=== PATIENT | female | born 1970 | race Caucasian/White ===

== ENCOUNTER 2021-09-23 11:31 | Outpatient (CLI) | payer OTHER, SELFPAY ==
--- NOTE | ~2021-09-23 | XR_ITS ---
EXAMINATION: XR shoulder RT min 2V INDICATION: Right shoulder pain TECHNIQUE: Four views of the right shoulder are submitted. COMPARISON: None FINDINGS: Normal alignment. No fracture. There is moderate osteoarthritis of the acromioclavicular brandi int and mild osteoarthritis of the glenohumeral joint. Soft tissues are unremarkable. IMPRESSION: 1. Osteoarthritis without acute osseous abnormality. Reviewed, dictated and finalized at location A. 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
== END 2021-09-23 11:32 | disposition home or self-care (01) ==
LOC: ANHIMG 11:36
PROVIDERS: PCP Emergency Medicine; Visit Provider Emergency Medicine
DX: M19.011 Primary osteoarthritis, right shoulder (principal)
CPT/HCPCS: 73030

== ENCOUNTER 2021-10-26 14:35 | Outpatient (CLI) | payer OTHER, SELFPAY ==
--- NOTE | ~2021-10-26 | MM_ITS ---
EXAMINATION: MM screening lawanda BI w coy HISTORY: Screening mammogram TECHNIQUE: Craniocaudal and mediolateral oblique 3-D tomosynthesis images were obtained and synthetic 2-D images were generated. CAD analysis was submitted and interpreted. COMPARISON: No prior mammogram is available for comparison at this institution. BREAST PARENCHYMAL COMPOSITION: The breasts are almost entirely fatty. FINDINGS: There is no suspicious mass, calcification, or architectural distortion to suggest malignan cy in either breast. IMPRESSION: 1. No mammographic evidence of malignancy. 2. Recommend routine screening mammography in one year. BI-RADS Category 1: Negative Reviewed, dictated and finalized at location A.
== END 2021-10-26 14:36 | disposition home or self-care (01) ==
LOC: ANHIMG 14:37
PROVIDERS: PCP Emergency Medicine; Visit Provider Family Medicine
DX: Z12.31 Encounter for screening mammogram for malignant neoplasm of breast (principal)
CPT/HCPCS: 77063; 77067

== ENCOUNTER 2021-11-06 16:02 | Outpatient (CLI) | payer OTHER, SELFPAY ==
--- NOTE | ~2021-11-06 | CT_ITS ---
EXAMINATION: CT shoulder RT wo con DATE: 11/06/2021 16:27 INDICATION: Right shoulder pain TECHNIQUE: High resolution computed tomography (CT) of the right shoulder was performed without intra venous contrast. Additional sagittal and coronal reconstructions were performed. Automated exposure c ontrol and iterative reconstruction technique were employed. The dose-length product was 653.83 mGy-c m. COMPARISON: Right shoulder radiographs dated 09/23/2021 FINDINGS: Bone alignment is normal. No fracture. The acromion undersurface is curved in morphology (type II) wi th small subacromial spurs. Moderate acromioclavicular and mild glenohumeral osteoarthritis. Multipl e small lucencies with sclerotic margins along the superior facet of the greater tuberosity as well a s the lesser tuberosity which could be degenerative cystic change related to chronic rotator cuff dis ease or potentially suture anchors related to prior rotator cuff repair. Correlate with clinical hist ory. There also suggestion of a possible suture anchor tract at the cephalad aspect of the intertuber cular groove which could be seen with bicipital tenodesis. No asymmetric atrophy of the musculature o f the right shoulder girdle. Calcified right lower lobe nodule and calcified right hilar lymph nodes consistent with old granulomatous disease. No pathologically enlarged right axillary lymphadenopathy. IMPRESSION: 1. Moderate right acromioclavicular and mild glenohumeral osteoarthritis. 2. Multiple lucencies at the lesser greater tuberosities and at the floor of the intertubercular groo ve which could be degenerative related to chronic rotator cuff disease but with configuration also montes ggests possibility of prior rotator cuff repair and/or bicipital tenodesis. Correlate with clinical/s urgical history. Reviewed, dictated and finalized at location B. IMPRESSION: 1. Moderate right acromioclavicular and mild glenohumeral osteoarthritis. 2. Multiple lucencies at the lesser greater tuberosities and at the floor of th e intertubercular groove which could be degenerative related to chronic rotator cuff disease but with configuration also suggests possibility of prior rotator cuff repair and/or bicipital tenodesis. Correlate with clinical/surgical histo ry.
== END 2021-11-06 16:03 | disposition home or self-care (01) ==
PROVIDERS: PCP Emergency Medicine; Visit Provider Nurse Practitioner Adult Health
DX: M25.511 Pain in right shoulder (principal); M19.011 Primary osteoarthritis, right shoulder
CPT/HCPCS: 73200

== ENCOUNTER 2021-12-18 12:30 | Outpatient (RCR) | payer OTHER, SELFPAY ==
[2021-11-30 08:14] VITALS: BP_SYST 132
--- NOTE | 2021-11-30 09:12 | PTOPEVAL ---
PHYSICAL THERAPY INITIAL EVALUATION. Thank you for referring Gretchen Harris to [facility].? The patient is scheduled to be seen for therapy? 2x/week for 4 weeks. Please review, sign, date and return this plan of care LANDON. I agree with and certify that the following plan of care is medically necessary. Referring Physician Date Attending Provider: Sidney Bynum MD *PT Outpatient Evaluation Start: 11/30/21 Evaluation Information Diagnosis R shoulder pain Onset 2+ years Subjective Information Pt states she is having Query Text:As Reported By Patient/ shoulder pain that is not new. Family She states she is limited and unable to lift and carry a mug. Pt is very emotional this date. She states she is very depressed and has anxiety. Pt states she has taken pain medication given to her by her dentist. Shes states she has done therapy before but did not complete her visits. Pain Assessment Right Shoulder(s) Reported Pain Level 8 Pain Description Aching,Dull,Sharp,Throbbing Pain Frequency Chronic,Intermittent Lowest Pain Intensity 4 Greatest Pain Intensity 9 Pain Aggravating Factors Lifting Additional Pain Score Comments Pt states she takes Alive and Tylenol daily Interventions Used Interventions Used By Clinicians Education,Exercise,Rest Pain Relief Interventions Used By Ice,Medication Patient Other Alleviating Interventions pain patches Upper Extremity Range of Motion Gross Upper Extremity Range of Motion Increased upper trap Comments recruitment with any motion of the R upper extremity. Emotion with any active movement. Pt unwilling to attempt motions today stating its not worth the pain . Scapular/ Shoulder Range of Motion Right Shoulder Flexion - Active 80 Shoulder Flexion - Passive 150 Shoulder Abduction - Active 64 Shoulder Abduction - Passive 132 Shoulder Medial Rotation - Active PSIS Shoulder Lateral Rotation - Active T1 Scapular/Shoulder Range of Motion L shoulder flexion - 140 Comments L shoulder abduction - 142 L active ER- T4 L active IR- T6 Upper Extremity Muscle Strength Testing Gross Upper Extremity Strength Comments L UE grossly 4/5 R should
--- NOTE | 2021-12-16 13:07 | PCPTNOTE ---
Patient called to cancel stating she was unable to make due to not having a ride.
--- NOTE | 2021-12-23 11:21 | PCPTNOTE ---
Patient did not show up for scheduled appointment this date. Called and left voicemail.
--- NOTE | 2021-12-30 09:32 | PCPTNOTE ---
Attending Provider: Sidney Bynum MD Patient:Gretchen Harris Date of :1970 Patient called the office today to cancel all her remaining appointments. She states she has to move for an uncertain amount of time. She will be discharged from skilled physical therapy services and will need new orders if she wishes to return at a later time. Patient?s initial visit was on 11/30/2021 and she had a total of 5 visits. The goals have been partially met. Thank you for referring this patient to [facility]. Please review, sign, date and return this discharge summary LANDON. I have been updated about the patient's current status and I agree with discharge from the above service at this time. Referring Physician Date
== END 2022-01-19 14:42 | disposition home or self-care (01) ==
LOC: ANHHIPT 12:30
PROVIDERS: PCP Emergency Medicine; Visit Provider Family Medicine
DX: M25.511 Pain in right shoulder (principal)
CPT/HCPCS: 97110; 97112; 97140; 97161

== ENCOUNTER 2022-01-28 17:35 | Outpatient (CLI) | payer OTHER, SELFPAY ==
--- NOTE | ~2022-01-28 | MR_ITS ---
EXAMINATION: MR shoulder RT wo con DATE: 01/28/2022 18:07 INDICATION: Chronic shoulder pain, loss of range of motion. No injury. TECHNIQUE: Magnetic resonance imaging (MRI) of the right shoulder was performed without intravenous c ontrast. Sequences included axial PD-weighted FS FSE, coronal oblique PD-weighted FS FSE and T2-weigh gemma FS FSE, and sagittal oblique T2-weighted FS FSE and T1-weighted FSE. COMPARISON: None. FINDINGS: Coracoacromial arch: Mild lateral downsloping of the type II acromion. Marked AC joint hypertrophy with considerable infer ior osteophytosis. Acromial tip enthesopathy. No significant subcoracoid narrowing Rotator cuff: Focal 4 mm partial-thickness tear of the anterior fibers of the supraspinatus at the footplate. Mild bursal sided fraying and minimal partial-thickness tearing of the most anterior fibers of the infrasp inatus at their insertion. Edema and fluid signal at the musculotendinous junction of the infraspinat us. Teres minor and subscapularis are intact. Biceps tendon and glenoid labrum: Thickening and high signal in the long head of biceps tendon, without focal tear. Focal high signal i n the posterior superior labrum. Fluid: Small volume subacromial and subdeltoid fluid. No significant glenohumeral fluid. Greater than expect ed fluid distention of the long head of biceps tendon sheath. Bones/cartilage: Bone marrow signal is unremarkable. IMPRESSION: 1. Small, focal partial tears of the supraspinatus and infraspinous, with interstitial type tearing o f the infraspinatus. 2. Tear of the posterior superior glenoid labrum. 3. Biceps tendinopathy with tenosynovitis. 4. Osseous outlet compromise and mild subchondral subdeltoid bursitis. Reviewed, dictated and finalized at location K. IMPRESSION: 1. Small, focal partial tears of the supraspinatus and infraspinous, with inter stitial type tearing of the infraspinatus. 2. Tear of the posterior superior glenoid labrum. 3. Biceps tendinopathy with tenosynovitis. 4. Osseous outlet compromise and mild subchondral subdeltoid bursitis.
== END 2022-01-28 17:36 | disposition home or self-care (01) ==
PROVIDERS: PCP Emergency Medicine; Visit Provider Nurse Practitioner Adult Health
DX: M19.011 Primary osteoarthritis, right shoulder (principal); M75.21 Bicipital tendinitis, right shoulder; S43.431A Superior glenoid labrum lesion of right shoulder, initial encounter; X58.XXXA Exposure to other specified factors, initial encounter
CPT/HCPCS: 73221

== ENCOUNTER 2022-10-07 08:00 | Outpatient (RCR) | payer OTHER, SELFPAY ==
[2022-08-26 14:59] VITALS: BP_SYST 90
--- NOTE | 2022-08-26 16:21 | PTOPEVAL1 ---
Assessment and note entered by Ginny Jefferson, PT Evaluation Information Assessment Status Evaluation Diagnosis right rotator cuff incomplete tear Onset years ago Subjective Information Pt received a shot in her shoulder but was a long time ago approx 6 months ago. Can't raise arm above head, bear weight, take backwards States has been catching more and shooting pain into arm. Reported Pain Level Pain Score 7: Self Report Assessment PT Clinical Summary Pt presents w/ dx right RTC partial tear nontraumatic. Pt reports pain ranges from 2-10/10, is unable to use her arm and thus is restricted in ADLs and activities d/t pain. She demo's severely reduced AROM, strength testing not performed d/t pain. Pt educated on dx, therapy prognosis, and HEP. Will benefit from therapy to reduce pain, improve ROM and strength thus improving ADLs and function. Plan of Care Interventions Electrical Stimulation,Hot Pack/Cold Pack,Manual Therapy,Neuro Re-education,Patient/Caregiver Educati,Therapeutic Activities,Therapeutic Exercise,Ultrasound PT Services Indicated Yes Treatment Frequency and 2x weekly x 4 weeks Duration These treatments will address the objective and functional deficits as defined above. The patient will be advanced safely and appropriately in order for the patient to progress towards his/her prior level of function. Additional exercises will be introduced and as well as a comprehensive home exercise program upon discharge, if needed, ?to ensure carryover of functional gains achieved in the clinic. This treatment plan has been reviewed and agreement upon by the patient.
--- NOTE | 2022-09-17 11:57 | PCPTNOTE ---
Patient called & cancelled scheduled appointment this date due to illiness
--- NOTE | 2022-10-07 08:38 | PTOPDC ---
Assessment and note entered by Ginny Jefferson, PT Assessment Status Discharge Diagnosis right rotator cuff incomplete tear Onset years ago Subjective Information Reports last couple nights woke up with her arm catching and getting stuck. Reports last few days have been bad. Has been icing it and pain patch Reported Pain Level Pain Score 8: Self Report Assessment PT Clinical Summary Pt arrives late for therapy session. Reports has good days and bad days, verbalizes being very fearful of movin her arm dur to possiblility of catching causing pain. Today cont to demo severe guarding with active motion, reports anxiety and frustration with shoulder. Pt has not made observable progress nor has she reported significant progress in her pain. Thus she is being referred back to MD for further testing.
== END 2022-10-07 09:16 | disposition home or self-care (01) ==
LOC: ANHHIPT 08:00
PROVIDERS: PCP Emergency Medicine; Visit Provider Orthopaedic Surgery
DX: M75.111 Incomplete rotator cuff tear or rupture of right shoulder, not specified as traumatic (principal)
CPT/HCPCS: 97014; 97035; 97110; 97112; 97140; 97162; G0283

== ENCOUNTER 2024-04-20 08:20 | Outpatient (CLI) | payer OTHER, SELFPAY ==
--- NOTE | ~2024-04-20 | US_ITS ---
Limited Abdominal Sonogram: Real-time sonographic imaging of the right upper quadrant was performed. Clinical History: Abnormal LFTs Findings: The liver appears normal with no evidence of mass lesion or bile duct dilatation. Main por breanne vein demonstrates normal direction of flow. The gallbladder is absent, compatible prior cholecyst ectomy. The common bile duct measures 8 mm. The visualized pancreas, aorta, and IVC are unremarkable . Impression: Status post cholecystectomy, otherwise unremarkable exam. Reviewed, dictated and finalized at location . Impression: Status post cholecystectomy, otherwise unremarkable exam.
== END 2024-04-20 08:21 | disposition home or self-care (01) ==
LOC: ANHIMG 08:23
PROVIDERS: PCP Registered Nurse; Visit Provider Nurse Practitioner Family
DX: D50.9 Iron deficiency anemia, unspecified (principal); Z90.49 Acquired absence of other specified parts of digestive tract
CPT/HCPCS: 76705

== ENCOUNTER 2024-07-20 01:28 | Day surgery (SDC) | payer OTHER, SELFPAY ==
[2024-06-11 13:54] VITALS: BMI 32.8
[2024-07-09 14:36] VITALS: BMI 32.8
--- NOTE | 2024-07-19 13:00 | P.PNAN_ITS ---
Anes - Initial Pre Proc Eval Procedure: Operation Date: 07/20/24 10:00 Proposed Procedures p Esophagogastroduodenoscopy & Colonoscopy - Derek Cobb MD Date/Time: 07/19/24 13:00 Surgeon: Derek Cobb MD Pre Op Diagnosis: abnormal weight loss Patient Data Age: 54 Gender: F Height: 1.6 m Weight: 84 kg Allergies Allergy/AdvReac Type Severity Reaction Status Date / Time No Known Allergies Allergy Verified 07/09/24 14:28 Home Medications ?Medication ?Instructions ?Recorded ?Confirmed ?Type folic acid 1 mg tablet 1 mg PO DAILY 09/10/20 07/20/24 History levetiracetam 750 mg tablet 750 mg PO BID 09/10/20 07/20/24 History levothyroxine 75 mcg tablet 75 mcg PO DAILY 09/10/20 07/20/24 History quetiapine 100 mg tablet 100 mg PO DAILY 09/10/20 07/20/24 History sertraline 100 mg tablet 100 mg PO DAILY 09/10/20 07/20/24 History Patient hx anesthesia problems: none Family hx anesthesia problems: none Results Review: All pre-operative results and documents have been reviewed as part of the pre- operative evaluation. [facility] Past Medical History Medical History (Updated 07/19/24 @ 13:01 by Hugh Nelson DO) Hypothyroidism (acquired) Bipolar disorder, unspecified Seizure disorder since 2011 (?) alcohol related Asthma Anemia Surgical History Surgical History History of delivery 1998 H/O ventral hernia repair multiple times History of cholecystectomy 1989 H/O gastric bypass 2002 Family History Family History Mother Heart disease Chronic obstructive pulmonary disease, unspecified Diabetes mellitus Father , before 40 years Acute myocardial infarction Other Asthma Social History Social History Smoking status: Never smoker Alcohol intake: never Alcohol use details: drank a lot for a while Substance use: never Substance use type: does not use Last use: high school Living arrangements: with family Additional living arrangements comments: condo unit with 21 year old son Occupation/Education: unemployed Gender identity (if verbalized by the patient): Female Sexual Orientation (if Verbalized by the Patient): Straight or Heterosexual Spiritual care concerns: No Agree to blood products: Yes Anes - Eval Final PreProcedure Day of Procedure 07/19/24 13:00 Patient weight: obese Heart: regular rate and rhythm Lungs: clear to auscultation Airway: Mallampati scale class II Neurological: alert and oriented Last oral intake: >/= 8 hours ASA classification: III Emergent: no Anesthetic plan: proceed Anesthesia type and monitoring: general GIVS and standard monitoring Results Review: All pre-operative results and documents have been reviewed as part of the pre- operative evaluation. Informed Consent: The patient's anesthetic plan and its attendant risks and benefits were discussed with the patient/family/POA. Questions were solicited and answers provided to the satisfaction of the patient/family/POA.
[2024-07-20 09:14] VITALS: BP 138/87; PULSE 89; RESP 18; TEMP 36.6; O2SAT 96
[2024-07-20] MEDS: LACTATED RINGERS 1,000 ML 150 ML IV CONT (09:32)
--- NOTE | 2024-07-20 10:07 | P.HP_ITS ---
H&P: HPI History of Present Illness Date/Time: 07/20/24 10:07 Chief Complaint: Iron defiency anemia Narrative: This patient has been seen in our office 2 months ago. She has a history of gastric bypass several years ago and was found to have recurrent iron deficiency anemia despite iron infusions. At 1 point she described having had rectal bleeding. She is here for evaluation, EGD and colonoscopy. [facility] Past Medical History Medical History (Updated 07/20/24 @ 10:09 by Derek Cobb MD) Hypothyroidism (acquired) Bipolar disorder, unspecified Seizure disorder since 2011 (?) alcohol related Asthma Anemia Surgical History Surgical History History of delivery 1998 H/O ventral hernia repair multiple times History of cholecystectomy 1989 H/O gastric bypass 2002 Family History Family History Mother Heart disease Chronic obstructive pulmonary disease, unspecified Diabetes mellitus Father , before 40 years Acute myocardial infarction Other Asthma Social History Social History Smoking status: Never smoker Alcohol intake: never Alcohol use details: drank a lot for a while Substance use: never Substance use type: does not use Last use: high school Living arrangements: with family Additional living arrangements comments: condo unit with 21 year old son Occupation/Education: unemployed Gender identity (if verbalized by the patient): Female Sexual Orientation (if Verbalized by the Patient): Straight or Heterosexual Spiritual care concerns: No Agree to blood products: Yes Meds Home Medications and Allergies Home Medications ?Medication ?Instructions ?Recorded ?Confirmed ?Type folic acid 1 mg tablet 1 mg PO DAILY 09/10/20 07/20/24 History levetiracetam 750 mg tablet 750 mg PO BID 09/10/20 07/20/24 History levothyroxine 75 mcg tablet 75 mcg PO DAILY 09/10/20 07/20/24 History quetiapine 100 mg tablet 100 mg PO DAILY 09/10/20 07/20/24 History sertraline 100 mg tablet 100 mg PO DAILY 09/10/20 07/20/24 History Allergies Allergy/AdvReac Type Severity Reaction Status Date / Time No Known Allergies Allergy Verified 07/09/24 14:28 Vital Signs Vital Signs - 24 hr 07/20/24 09:14 Temperature 97.8 F Pulse Rate 89 Respiratory Rate 18 Blood Pressure 138/87 Pulse Oximetry 96 Oxygen Delivery Room Air Exam Const: General: cooperative and healthy appearing Resp: Effort & Inspection: normal respiratory effort and able to speak in complete sentences Auscultation: clear to auscultation bilaterally Cardio: Rate: regular rate Rhythm: regular rhythm GI: Inspection: normal to inspection GI Palp: No No hepatosplenomegaly present Auscultation: normal bowel sounds Rectal Exam: deferred Skin: General skin exam: normal color Psych: Appearance: grossly normal Mental Status: mental status grossly normal Assessment and Plan Assessment and plan (1) Iron deficiency anemia: Code(s): D50.9 - Iron deficiency anemia, unspecified Status: Acute Assessment and Plan: The patient has noted deficiency is multifactorial, taking into account gastric bypass by itself can be an explanation. However, will perform EGD to rule out anastomotic ulcers or erosive gastritis. Due to history of colonic polyps, a colonoscopy will also be performed. The patient is deemed a good candidate for the procedures. Consent signed. Will proceed.
--- NOTE | 2024-07-20 10:23 | SUR.OPER ---
EGD: start 1013, end 1017 Colonoscopy: start 1023, end 1037
[2024-07-20 10:39] VITALS: BP 104/64; PULSE 71; RESP 16; O2SAT 100
[2024-07-20 10:49] VITALS: BP 110/73; PULSE 75; RESP 21; O2SAT 99
[2024-07-20 10:59] VITALS: BP 112/66; PULSE 72; RESP 17; O2SAT 100
== END 2024-07-20 11:28 | disposition home or self-care (01) ==
PROVIDERS: PCP Registered Nurse; Referring Provider Nurse Practitioner Family; Visit Provider Internal Medicine Gastroenterology
PROC: 0DJ08ZZ Inspection of Upper Intestinal Tract, Via Natural or Artificial Opening Endoscopic (ICD-10-PCS; CPT 43235; principal; 2024-07-20 10:00)
DX: D50.9 Iron deficiency anemia, unspecified (principal); Z98.84 Bariatric surgery status; E66.9 Obesity, unspecified; Z68.32 Body mass index [BMI] 32.0-32.9, adult
CPT/HCPCS: 45378; 43239; 88305; J2704; J7120

== ENCOUNTER 2024-10-19 10:23 | Outpatient (CLI) | payer OTHER, SELFPAY ==
[2024-10-19 10:50] LABS: Basophils Absolute Auto 0.1 K/mm3 (0.0-0.1); Basophils Percent Auto 0.7 % (0.2-1.2); Eosinophils Absolute Auto 0.3 K/mm3 (0-0.3); Eosinophils Percent Auto 4.4 % (0-4.4); Hematocrit 37.2 % (37.0-47.0); Hemoglobin 12.2 g/dL (12.0-15.0); Immature Granulocyte Absolute 0.02 K/mm3 (0.00-0.031); Immature Granulocyte Percent A 0.3 % (0-0.5); Lymphocytes Absolute Auto 2.05 K/mm3 (0.9-3.2); Mean Corpuscular HGB Conc 32.8 g/dl (32-36); Mean Corpuscular Hemoglobin 32.4 pg (26-34); Mean Corpuscular Volume 98.7 fl (80-100); Mean Platelet Volume 10.1 fl (7.4-10.4); Monocytes Absolute Auto 0.5 K/mm3 (0.1-0.6); Monocytes Percent Auto 6.5 % (2.6-8.5); Neutrophils Absolute Auto 4.2 K/mm3 (1.3-6.7); Neutrophils Percent Auto 59.1 % (45.5-73.1); Platelet Count Result 246 k/mm3 (150-375); Red Blood Count 3.77 M/mm3 (4.2-5.4); Red Cell Distribution Width 11.6 % (11.5-14.5); White Blood Count 7.1 K/mm3 (4.5-10.0)
[2024-10-19 11:18] LABS: Alanine Aminotransferase 48 U/L (6-35); Albumin Level 3.9 g/dL (3.5-5.1); Alkaline Phosphatase 147 U/L (38-126); Anion Gap 5 mmol/L (4-12); Aspartate Amino Transferase 42 U/L (14-36); Bilirubin,Total 0.6 mg/dL (0.2-1.3); Blood Urea Nitrogen 11 mg/dL (7-17); Calcium 8.5 mg/dL (8.4-10.2); Carbon Dioxide 30 mmol/L (22-30); Chloride 104 mmol/L (98-107); Cholesterol 128 mg/dL (0-200); Estimated Glomerular Filt Rate > 60; Glucose 93 mg/dL (65-110); HDL Direct 52 mg/dL; Potassium 3.6 mmol/L (3.4-5.0); Sodium 139 mmol/L (137-145); Triglycerides 54 mg/dL (<150)
[2024-10-19 11:29] LABS: LDL Cholesterol Direct 61 mg/dL
--- OUTSIDE RECORDS SUMMARY | 2024-10-19 11:33 | XMS_ITS | Clinical Summary ---
Author Organization [facility] Address [address], [facility] [address] [place] [address] Phone Care Team Providers Care Sport Internship Name Role Phone Hira Miller MD Unavailable [phone] Dmitri Fernández MD Unavailable [phone] Sidney Bynum MD Primary Care Provider [phone] Allergies No known active allergies Medications levETIRAcetam (KEPPRA) 750 MG Tablet Take 750 mg by mouth as needed. Active sertraline (ZOLOFT) 100 MG Tablet Take 100 mg by mouth daily. Active CYANOCOBALAMIN PO 1,000 mcg by Subcutaneous route as needed (monthly injections). Active mirtazapine (REMERON) 30 MG Tablet Take 30 mg by mouth nightly. Active levothyroxine (SYNTHROID) 75 MCG Tablet Take 75 mcg by mouth. 1 Active folic acid (FOLVITE) 1 MG Tablet Take 1 mg by mouth. 1 Active traZODone (DESYREL) 50 MG Tablet TAKE 1 TO 2 TABLETS BY MOUTH EVERY NIGHT AT BEDTIME NEEDED FOR SLEEP 4 Active hydrOXYzine (ATARAX) 50 MG Tablet Take 50 mg by mouth nightly. 4 Active HYDROcodone-kwaku taminophen (NORCO) 5-325 MG Tablet Take 1 Tablet by mouth daily. 4 Active albuterol 108 (90 Base) MCG/ACT Aerosol Solution take 1 Puff by inhalation. 1 Active thiamine (vitamin B-1) 100 MG TabletIndicatio ns:Vitamin B1 deficiency Take 1 Tablet by mouth daily. 30 Tablet 4 Active QUEtiapine Fumarate 300 MG Tablet Take 300 mg by mouth nightly. 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 Office Visit [facility] [id number] [address] Sandra Amanda, PARTNER MANAGEMENT CONSULTANT, ACURA SALES CONSULTANT Iron deficiency anemia 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 (Primary Dx); Vitamin B12 nutritional deficiency; Vitamin B1 deficiency 08/09/2024 Travel from Last 3 Months Family History Medical History Relation Name Comments Drug Abuse Brother Heart Attack Father Hypertension Father Diabetes Mother Heart Attack Mother Hypertension Mother Relation Name Status Comments Brother Father Mother Social History Tobacco Use Types Packs/Day Years Used Date Smoking Tobacco: Never Tobacco Cessation:Counseling Given: Not Answered Alcohol Use Standard Drinks/Week Comments Never 0 (1 standard drink = 0.6 oz pur e alcohol) Comments Unknown Sex and Gender Information Value Date Recorded Sex Assigned at Not on file Legal Sex Female 2:24 PM CDT Gender Identity Not on file Sexual Orientation Not on file Last Filed Vital Signs Vital Sign Reading Time Taken Comments Blood Pressure 130/86 08/09/2024 1:44 PM ICE CREAM FREEZER HELPER Pulse 88 08/09/2024 1:44 PM ICE CREAM FREEZER HELPER Temperature 36.7 C (98 F) 08/09/2024 1:44 PM ICE CREAM FREEZER HELPER Respiratory Rate 18 08/09/2024 1:44 PM ICE CREAM FREEZER HELPER Oxygen Saturation 97% 08/09/2024 1:44 PM ICE CREAM FREEZER HELPER Inhaled Oxygen Concentration - - Weight 84.2 kg (185 lb 9.6 oz) 08/09/2024 1:44 P M ICE CREAM FREEZER HELPER Height 160 cm (5' 3 ) 08/09/2024 1:44 PM ICE CREAM FREEZER HELPER Body Mass Index 32.88 08/09/2024 1:44 PM ICE CREAM FREEZER HELPER Plan of Treatment Upcoming Encounters Date Type Department Care Team (Late st Contact Info) Description 11/08/2024 1:45 PM CDT Office Visit [facility] [address] [address] Dmitri Fernández MD [address] [place] [address] Health Maintenance Due Date Last Done Comments Hepatitis C Virus (HCV) Screening 1970 Mammogram 1970 TdaP Immunization 1970 Hepatitis B Immunization (1 of 3 - 19+ 3-dose series) 1989 Pap Smear 1991 Cervical Cancer Screening (CCS) 2000 HPV/Cotest 2000 Colonoscopy 2015 Cologuard 2020 Pneumococcal Immunization (5 0+ years) (2 of 2 - PCV) 2020 02/12/2014 Zoster Immunization (1 of 2) 2020 Colorectal Cancer Screening 03/05/2021 Immunochemical Fecal Occult Blood 03/04/2022 021 Influenza Immunization (#1) 2024 05/15/2015 SARS-COV-2 Immunization ( - season) 2024 Respiratory Syncytial Virus (RSV) Immunization (Adult) (1 - 1-dose 75+ series) 2045 Pneumococcal Immunization Combined Discontinued 2013 Meningococcal Immunization (ACWY) Aged Out No longer eligible based on patient's age to complete this topic Rotavirus Immunization Aged Out No lo nger eligible based on patient's age to complete this topic Insurance [place]ICAID [place] Dress Code PLAN Care Teams Sport Internship Relationship Specialty Start Date End Date Sidney Bynum MD [address] [address] PCP - General Family Medicine 04/30/24 [place] [address] [place] [address] Internal Medicine 10/30/15 Dmitri Fernández MD [address] [place] [phone] Consulting Physician Oncology 11/03/23
--- OUTSIDE RECORDS SUMMARY | 2024-10-19 11:33 | XMS_ITS | Clinical Summary ---
Author Organization [facility] Address [facility] [place] [address] Care Team Providers Care Industrial Design Engineer Name Role Phone Unavailable Primary Care Provider Unavailabl e Source Comments [facility],non-owned Affiliates and Associated Physician Practices is amultiple site organization consisting of ambulatory clinics and hospital sitesin [place], [place]. This disclosure is being madepursuant to the Care Everywhere program and may not contain all information available regarding this patient. Last updated 18.[facility] Allergies No known active allergies Social History Tobacco Use Types Packs/Day Years Used Date Smoking Tobacco: Never Assessed Sex and Gender Information Value Date Recorded Sex Assigned at Not on file Gender Identity Not on file Sexual Orientation Not on file Plan of Treatment Health Maintenance Due Date Last Done Comments COLOGUARD (AGES 45-75) - COL ON CA SCREENING 1970 COLON MONITORING 1970 COLONOSCOPY - COLON CA SCREENING 1970 CT COLONOGRAPHY - COLON CA SCREENING 1970 Colorectal Cancer Screening 1970 FIT - COLON CA SCREENING 1970 FLEX SIG - COLON CA SCREENING 1970 LIPID TESTING 1970 MAMMOGRAM 1970 PAP SMEAR 1970 HIV SCREENING 1985 HEPATITIS C SCREENING 06/18/1988 DTAP/TDAP/TD VACCINES (1 - Tdap) 1989 HEPATITIS B VACCINE (1 of 3 - 19+ 3-dose series) 1989 PNEUMOCOCCAL VACCINE 50+ (1 of 1 - PCV) 2020 ZOSTER VACCINE (1 of 2) 2020 COVID-19 VACCINE ( - 2023-2 5 season) 2024 INFLUENZA VACCINE (#1) 2024 05/15/2015 DEPRESSION SCREENING 08/01/2024 HIB VACCINE Aged Out No longer eligi ble based on patient's age to complete this topic HPV VACCINE Aged Out No longer eligi ble based on patient's age to complete this topic MENINGOCOCCAL (Group B) VACC INE SHARED DECISION-MAKING Aged Out No longer eligibl e based on patient's age to complete this topic MENINGOCOCCAL GROUPS A/C/Y/W VACCINE Aged Out No longer eligible b ased on patient's age to complete this topic PNEUMOCOCCAL VACCINE Aged Out No long er eligible based on patient's age to complete this topic
[2024-10-19 11:47] LABS: Total Triiodothyronine (T3) 1.02 NG/ML (0.97-1.69)
[2024-10-19 11:52] LABS: Iron 52 ug/dL (37-170)
[2024-10-19 12:02] LABS: Percent Iron Saturation 17 % (20-50)
[2024-10-19 12:10] LABS: Free T4 Free Thyroxine 1.05 ng/dL (0.78-2.19)
== END 2024-10-19 10:24 | disposition home or self-care (01) ==
LOC: ANHLAB 10:25
PROVIDERS: PCP Registered Nurse; Visit Provider Family Medicine
DX: E03.9 Hypothyroidism, unspecified (principal); D50.9 Iron deficiency anemia, unspecified
CPT/HCPCS: 36415; 80053; 80061; 83540; 83550; 84439; 84443; 84480; 85025

== ENCOUNTER 2025-05-02 01:17 | Day surgery (SDC) | payer OTHER, SELFPAY ==
[2025-04-24 12:34] VITALS: BMI 31.8
--- OUTSIDE RECORDS SUMMARY | 2025-05-02 01:19 | XMS_ITS | Patient Health Record ---
Author Organization [facility] Address [address] [facility] [address] [place] [address] Care Team Providers Care Painting Department Supervisor Name Role Phone Tara Olivares Unavailable [phone] Reason For Referral No Information Medications Medication SIG (Take, Route, Frequency, Duration) Notes Start Date End Date Status Sertraline HCl 100 MG Tablet Oral 10/16/2018 Active busPIRone HCl 5 MG Tablet Oral 10/16/2018 Active HYDROcodone-Acetaminoph en 5-325 MG Tablet Oral 10/16/2018 Active QUEtiapine Fumarate 100 MG Tablet Oral 10/16/2018 Active Levothyroxine Sodium 75 MCG Tablet Oral 10/16/2018 Active Mirtazapine 15 MG Tablet Oral 10/16/2018 Active Fluticasone Propionate Diskus 50 MCG/ACT Aerosol Powder Breath Activated Inhalation *Reorder from [employer] for eRx and Interaction Alerts* 10/16/2018 Active Folic Acid 1 MG Tablet Oral 10/16/2018 Active predniSONE 20 MG Tablet Oral 10/16/2018 Active Cyanocobalamin 1000 MCG/ML Solution Injection 10/16/2018 Active Mirtazapine 30 MG Tablet Oral 10/16/2018 Active Cholecalciferol 1.25 MG (49589 UT) Capsule Oral 10/16/2018 Active ProAir HFA 108 (90 Base) MCG/ACT Aerosol Solution Inhalation 10/16/2018 Active levETIRAcetam 750 MG Tablet Oral 10/16/2018 Active Social History Social History Additional Details Category Social Info Options Details Migrated Social History Migrated Social History Alcohol Intake: None 10/16/2018,Tobacco Years: Never smoker 10/16/2018 Plan Of Treatment No Information Insurance Providers Payer Name Payer Address Payer Phone Subscriber Number Group Number Insured Name Patient Relationship to Insured Coverage Start Date Coverage End Date [facility] - Dos Prior To [address] [address] [place] [phone] [id number] DIANNE JIANG Self - patient is the insured
--- OUTSIDE RECORDS SUMMARY | 2025-05-02 01:19 | XMS_ITS | Clinical Summary ---
Author Organization [facility] Address [address], [facility] [address] [place] [address] Phone Care Team Providers Care Bus Driver School Name Role Phone Dmitri Fernández MD Unavailable [phone] Sidney Bynum MD Primary Care Provider Allergies No known active allergies Medications levETIRAcetam (KEPPRA) 750 MG Tablet Take 750 mg by mouth as needed. Active sertraline (ZOLOFT) 100 MG Tablet Take 100 mg by mouth daily. Active mirtazapine (REMERON) 30 MG Tablet Take 30 mg by mouth nightly. Active levothyroxine (SYNTHROID) 75 MCG Tablet Take 75 mcg by mouth. 03/06/20 21 Active folic acid (FOLVITE) 1 MG Tablet Take 1 mg by mouth. 03/06/20 21 Active traZODone (DESYREL) 50 MG Tablet TAKE 1 TO 2 TABLETS BY MOUTH EVERY NIGHT AT BEDTIME NEEDED FOR SLEEP 09/28/19 24 Active hydrOXYzine (ATARAX) 50 MG Tablet Take 50 mg by mouth nightly. 10/16/19 24 Active HYDROcodone-ac etaminophen (NORCO) 5-325 MG Tablet Take 1 Tablet by mouth daily. 10/17/19 24 Active albuterol 108 (90 Base) MCG/ACT Aerosol Solution take 1 Puff by inhalation. 03/06/20 21 Active thiamine (vitamin B-1) 100 MG TabletIndicati ons:Vitamin B1 deficiency Take 1 Tablet by mouth daily. 30 Tablet 12/07/19 24 Active QUEtiapine Fumarate 300 MG Tablet Take 300 mg by mouth nightly. 12/01/19 24 Active Cyanocobalamin 1000 MCG SL Tablet 1 Tablet by Sublingual route daily for 360 days. 90 Tablet 3 02/08/20 25 026 Active cyanocobalamin (VITAMIN B-12) 1000 MCG/ML Solution INJECT 1000MCG( 1ML) ONCE A WEEK FOR 4 DOSES 4 mL 04/29/20 25 Active Cyanocobalamin (B-12 Compliance Injection) 1000 MCG/ML Kit 1,000 mcg by Injection route once a week for 4 doses. 4 Kit 11/15/19 25 025 Discontinued Active Problems Problem Noted Date Diagnosed Date Elevated blood pressure reading 08/09/2024 HTN (hypertension) 08/09/2024 Vitamin B12 nutritional deficiency 01/08/2016 Elevated liver enzymes 01/08/2016 Iron deficiency anemia refractory to iron therap y 11/20/2015 Encounters Date Type Department Care Team Description 04/29/2025 Refill [facility] [address] [place] [address] Dmitri Fernández MD Medication Refill 02/07/2025 2:45 PM CDT Clinical Support [facility] [address] [address] Nurse, [facility] Vitamin B12 nutritional deficiency (Primary Dx); Iron deficiency anemia 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; Elevated liver enzymes 02/07/2025 1:45 PM CDT Office Visit [facility] [id number] [address] Dmitri Fernández MD Iron deficiency anemia 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 (Primary Dx); Vitamin B12 nutritional deficiency; Elevated liver enzymes 02/07/2025 Travel from Last 3 Months Family History [...] Sign Reading Time Taken Comments Blood Pressure 130/80 02/07/2025 2:03 PM CDT Pulse 85 02/07/2025 2:03 PM CDT Temperature 36.5 C (97.7 F) 02/07/2025 2:03 PM CDT Respiratory Rate 16 02/07/2025 2:03 PM CDT Oxygen Saturation 97% 02/07/2025 2:03 PM CDT Inhaled Oxygen Concentration - - Weight 85.7 kg (189 lb) 02/07/2025 2:03 PM CDT Height 160 cm (5' 3) 02/07/2025 2:03 PM CDT Body Mass Index 33.48 02/07/2025 2:03 PM CDT Plan of Treatment Upcoming Encounters Date Type Department Care Team (Late st Contact Info) Description 05/09/2025 1:45 PM CDT Office Visit [facility] [address] [address] Dmitri Fernández MD [address] [place] [phone] Health Maintenance Due Date Last Done Comments Hepatitis C Virus (HCV) Screening 1970 Mammogram 1970 TdaP Immunization 1970 Hepatitis B Immunization (1 of 3 - 19+ 3-dose series) 1989 Pap Smear 1991 Cervical Cancer Screening (CCS) 2000 HPV/Cotest 2000 Cologuard 2015 Colonoscopy 2015 Pneumococcal Immunization (5 0+ years) (2 of 2 - PCV) 2020 02/12/2014 Zoster Immunization (1 of 2) 2020 Colorectal Cancer Screening 03/04/2022 Immunochemical Fecal Occult Blood 03/04/2022 021 Influenza Immunization (#1) 2025 05/15/2015 SARS-COV-2 Immunization ( - ) 04/01/2025 Respiratory Syncytial Virus (RSV) Immunization (Adult) (1 - 1-dose 75+ series) 2045 Pneumococcal Immunization Combined Discontinued 2013 Human Papillomavirus (HPV) Immunization Aged Out No longer eligible b ased on patient's age to complete this topic Meningococcal Immunization (ACWY) Aged Out No longer eligible based on patient's age to complete this topic Rotavirus Immunization Aged Out No lo nger eligible based on patient's age to complete this topic Procedures Procedure Name Priority Date/Time Associated Diagnosis Comments CBC WITH AUTO DIFF OH Routine 02/07/2025 3:20 PM CDT VITAMIN B12 [id number] OH Routine 02/07/2025 3:20 PM CDT IRON AND TIBC [id number] [place] Routine 02/07/2025 3:20 PM CDT FOLATE [id number] OH Routine 02/07/2025 3:20 PM CDT FERRITIN [id number] OH Routine 02/07/2025 3: 20 PM CDT COMP. METABOLIC PANEL [id number] OH Routine 02/07/2025 3:20 PM CDT RETICULOCYTE COUNT (RETIC) Routine 02/07/2025 3:20 PM CDT Iron deficiency anemia 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 Vitamin B12 nutritional deficiency Elevated liver enzymes COPPER, SERUM OH 1586 Routine 02/07/2025 3:20 PM CDT Iron deficiency anemia 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 Vitamin B12 nutritional deficiency Elevated liver enzymes from Last 3 Months Results * VITAMIN B12 [id number] [place] (02/07/2025 3:20 PM CDT) VITAMIN B12 417 232 - 1,245 PG/ML [facility] 02/07/2025 3:20 PM CDT Narrative [facility] - 02/09/2025 8:08 AM CDT TESTING PERFORMED AT: [] [facility], [address] [place] [address], [address], PHONE: [phone], MECHANICAL ESTIMATOR: EMERSON BRYSON, PHD us Dmitri Fernández MD LAB SEND OUTS Final Resul t Performing Organization Address City/[facility]/ZIP Co de Phone Number CANCER TEAM COORDINATOR [facility] [place] [address] [place] [address], * IRON AND TIBC [id number] [place] (02/07/2025 3:20 PM CDT) Iron Bind.Cap.(TIBC) 292 250 - 450 UG/DL [facility] UIBC 237 131 - 425 UG/DL [facility] Iron, Serum 55 27 - 159 UG/DL [facility] Iron Saturation 19 15 - 55 % [facility] 02/07/2025 3:[address] [facility] - 02/09/2025 8:08 AM CDT TESTING PERFORMED AT: [CB] [facility], [address] [place] [address], [address], PHONE: [phone], MECHANICAL ESTIMATOR: EMERSON BRYSON, PHD Dmitri Fernández MD LAB SEND OUTS Final Resul t Performing Organization Address [facility]/ZIP Co de Phone Number [facility] Cancer Care [address] [place] [address], * FOLATE [id number] [place] (02/07/2025 3:20 PM CDT) Folate (Folic Acid), Serum 18.5 >3.0 NG/ML [facility] Comment: A SERUM FOLATE CONCENTRATION OF LESS THAN 3.1 NG/ML IS CONSIDERED TO REPRESENT CLINICAL DEFICIENCY. 02/07/2025 3:[address] [facility] - 02/09/2025 8:08 AM CDT TESTING PERFORMED AT: [] [facility], [address] [place] [address], [address], PHONE: [phone], MECHANICAL ESTIMATOR: EMERSON BRYSON, PHD us Dmitri Fernández MD LAB SEND OUTS Final Resul t Performing Organization Address [facility] Co de Phone Number [facility] [address] [place] [address], [place] [phone] * (ABNORMAL) FERRITIN [id number] [place] (02/07/2025 3:20 PM CDT) Ferritin, Serum 293(H) 15 - 150 NG/ML [facility] 02/07/2025 3:20 PM CDT Narrative [facility] - 02/09/2025 8:08 AM CDT TESTING PERFORMED AT: [] [facility], [address] [place] [address], [address], PHONE: [phone], MECHANICAL ESTIMATOR: EMERSON BRYSON, PHD us Dmitri Fernández MD LAB SEND OUTS Final Resul t Performing Organization Address [facility] Co de Phone Number [facility] [address] [place] [address], [place] [phone] * (ABNORMAL) COMP. METABOLIC PANEL [id number] [place] (02/07/2025 3:20 PM CDT) GLUCOSE, SERUM 90 70 - 99 MG/DL [facility] BUN 11 6 - 24 MG/DL [facility] CREATININE, SERUM 0.70 0.57 - 1.00 MG/DL [facility] EGFR 103 >59 ML/MIN/1.7 3 [facility] BUN/CREATININE RATIO 16 9 - 23 [facility] SODIUM, SERUM 141 134 - 144 MMOL/L [facility] POTASSIUM, SERUM 4.1 3.5 - 5.2 MMOL/L [facility] CHLORIDE, SERUM 106 96 - 106 MMOL/L [facility] CARBON DIOXIDE, TOTAL 19(L) 20 - 29 MMOL/L [facility] CALCIUM, SERUM 8.6(L) 8.7 - 10.2 MG/DL [facility] PROTEIN, TOTAL, SERUM 6.6 6.0 - 8.5 G/DL [facility] ALBUMIN, SERUM 4.2 3.8 - 4.9 G/DL [facility] GLOBULIN, TOTAL 2.4 1.5 - 4.5 G/DL [facility] BILIRUBIN, TOTAL 0.4 0.0 - 1.2 MG/DL [facility] ALKALINE PHOSPHATASE, S 160(H) 44 - 121 IU/L [facility] AST (SGOT) 53(H) 0 - 40 IU/L [facility] ALT (SGPT) 60(H) 0 - 32 IU/L [facility] 02/07/2025 3:20 PM CDT Narrative [facility] - 02/09/2025 8:08 AM CDT TESTING PERFORMED AT: [] [facility], [address] [place] [address], [place], [address], PHONE: [phone], MECHANICAL ESTIMATOR: EMERSON BRYSON, PHD us Dmitri Fernández MD LAB SEND OUTS Final Resul t Performing Organization Address City/State/[facility] Co de Phone Number [facility] [place] [address], * (ABNORMAL) CBC WITH AUTO DIFF [place] (02/07/2025 3:20 PM CDT) WBC 6.7 4.0 - 10.0 10*3/uL [facility] HGB 13.1 11.2 - 15.7 g/dL [facility] HCT 39.1 34.1 - 44.9 % CANCER [facility] PLT 217 163 - 369 10*3/uL [facility] MPV 10.8 9.4 - 12.4 fL CANCER TEAM COORDINATOR [facility] RBC 3.98 3.93 - 5.22 10*6/uL CANCER TEAM COORDINATOR [facility] MCV 98(H) 79 - 95 fL CANCER TEAM COORDINATOR [facility] MCH 32.9(H) 25.6 - 32.2 pg CANCER TEAM COORDINATOR [facility] MCHC 33.5 32.2 - 36.5 g/dL CANCER TEAM COORDINATOR [facility] RDW 11.9 11.6 - 14.4 % CANCER TEAM COORDINATOR [facility] Neutrophils % 56.6 36.0 - 66.0 % CANCER TEAM COORDINATOR [facility] Lymphocytes % 30.2 19.0 - 40.0 % CANCER TEAM COORDINATOR [facility] Monocytes % 6.7 4.1 - 12.1 % CANCER TEAM COORDINATOR [facility] Eosinophils % 5.5(H) 0.0 - 3.5 % CANCER TEAM COORDINATOR [facility] Basophils % 0.6 0.0 - 1.0 % CANCER TEAM COORDINATOR [facility] Absolute Neutrophils 3.8 1.4 - 6.6 10*3/uL CANCER TEAM COORDINATOR [facility] Absolute Lymphocytes 2.0 0.8 - 4.0 10*3/uL CANCER TEAM COORDINATOR [facility] Absolute Monocytes 0.5 0.2 - 1.2 10*3/uL CANCER TEAM COORDINATOR [facility] Absolute Eosinophils 0.4 0.0 - 0.4 10*3/uL CANCER TEAM COORDINATOR [facility] Absolute Basophils 0.0 0.0 - 0.1 10*3/uL CANCER TEAM COORDINATOR [facility] 02/07/2025 3:20 PM CDT Dmitri Fernández MD LAB SEND OUTS Final Resul t CANCER TEAM COORDINATOR [facility] [place] [address], * (ABNORMAL) COPPER, SERUM [place] [id number] (02/07/2025 3:20 PM CDT) COPPER, SERUM 61(L) 80 - 158 UG/DL CANCER TEAM COORDINATOR [facility] Comment:DETECTION LIMIT = 5 02/07/2025 3:20 PM CDT [facility] - 02/12/2025 8:19 PM CDT TESTING PERFORMED AT: [BN] LAB[address], [place], [address], PHONE: [phone], MECHANICAL ESTIMATOR: CLAUDIA PIERRE MD TEST(S) [id number], SERUM OR PLASMA WAS DEVELOPED AND ITS PERFORMANCE CHARACTERISTICS DETERMINED BY [facility]. IT HAS NOT BEEN CLEARED OR APPROVED BY THE FOOD AND DRUG ADMINISTRATION. Release to patient->Immediate Dmitri Fernández MD LAB SEND OUTS Final Resul t Performing Organization Address [facility]/ZIP Co de Phone Number CANCER TEAM COORDINATOR [facility] Cancer Care [address] [address] [address] [address] [place] [address], [place] [phone] * RETICULOCYTE COUNT (RETIC) (02/07/2025 3:20 PM CDT) Reticulocyte count 1.27 0.50 - 1.70 % [facility] RET-He 35.30 28.20 - 36.60 pg [facility] Comment: RET-He is a direct assessment of incorporation of iron into erythrocyte hemoglobin. It provides an indirect measure of the iron available for new erythropoiesis over past 2-4 days. Blood 02/07/2025 3:20 PM CDT [facility] CAN[facility]ER [facility] - 02/07/2025 5:22 PM CDT Release to patient->Immediate Dmitri Fernández MD HEMATOLOGY ORDERABLES Final Result Performing Organization Address [facility]/ZIP Co de Phone Number [facility] Cancer Care [address] [address] [place] [address], from Last 3 Months Insurance MEDICAID [employer] Care Teams Bus Driver School Relationship Specialty Start Date End Date Sidney Bynum MD [address] [facility] [address] [address] PCP - General Family Medicine 04/30/24 Dmitri Fernández MD [address] [place] [address] Consulting Physician Oncology 11/03/23
--- OUTSIDE RECORDS SUMMARY | 2025-05-02 01:19 | XMS_ITS | Clinical Summary ---
Author Organization [facility] Address [facility] [facility] [place] [address] Care Team Providers Care Global Safety Officer Name Role Phone Unavailable Primary Care Provider Unavailabl e Source Comments [facility],non-owned Affiliates and Associated Physician Practices is amultiple site organization consisting of ambulatory clinics and hospital sitesin [place], [place], [place] and [place]. This disclosure is being madepursuant to the Care Everywhere program and may not contain all information available regarding this patient. Last updated 18.[facility] Allergies No known active allergies Social History Tobacco Use Types Packs/Day Years Used Date Smoking Tobacco: Never Assessed Comments Unknown Sex and Gender Information Value Date Recorded Sex Assigned at Not on file Legal Sex Female 10:32 AM CDT Gender Identity Not on file Sexual [...] SCREENING 1970 LIPID TESTING 1970 MAMMOGRAM 1970 HIV SCREENING 1985 HEPATITIS C SCREENING 06/18/1988 DTAP/TDAP/TD VACCINES (1 - Tdap) 1989 HEPATITIS B VACCINE (1 of 3 - 19+ 3-dose series) 1989 PAP SMEAR 1991 PNEUMOCOCCAL VACCINE 50+ (1 of 1 - PCV) 2020 ZOSTER VACCINE (1 of 2) 2020 DEPRESSION SCREENING 08/01/2024 COVID-19 VACCINE (1 - 2023-2 5 season) 2025 INFLUENZA VACCINE (#1) 2025 05/15/2015 HIB VACCINE Aged Out No longer eligi [...] patient's age to complete this topic Insurance [facility] SELF PAY NO INSURANCE Member Subscriber Plan / Payer (Ef fective for All Dates) Name:Gretchen Jiang Member ID:Not on file Relation to Subscriber:Not on file Name:GRETCHEN JIANG Subscriber ID:Not on file (Home) Address: [address] [place] [address] [place] [address] Payer ID:Not on file Group ID:Not on file Type:Self Pay Address: [place], [place]
[2025-05-02 13:21] VITALS: BP 106/71; PULSE 68; RESP 16; TEMP 36.7; O2SAT 100; BMI 31.8
[2025-05-02] MEDS: LACTATED RINGERS 1,000 ML 150 ML IV CONT (13:32)
--- NOTE | 2025-05-02 14:01 | WPDANESEPPF ---
Anes - Initial Pre Proc Eval Procedure: Operation Date: 05/02/25 13:30 Proposed Procedures p Diagnostic Colonoscopy - Derek Cobb MD Date/Time: 05/02/25 14:01 Surgeon: Derek Cobb MD Pre Op Diagnosis: Iron deficiency anemia, unspecified Patient Data Age: 54 Gender: F Height: 1.6 m Weight: 81.6 kg Last Vital Signs Temp 36.7 C 05/02/25 13:21 Pulse 68 05/02/25 13:21 Resp 16 05/02/25 13:21 BP 106/71 05/02/25 13:21 Pulse Ox 100 05/02/25 13:21 O2 Del Method Room Air 05/02/25 13:21 Allergies Allergy/AdvReac Type Severity Reaction Status Date / Time No Known Allergies Allergy Verified 05/02/25 13:21 Home Medications ?Medication ?Instructions ?Recorded ?Confirmed ?Type folic acid 1 mg tablet 1 mg PO DAILY 09/10/20 05/02/25 History levetiracetam 750 mg tablet 750 mg PO BID 09/10/20 05/02/25 History levothyroxine 75 mcg tablet 75 mcg PO DAILY 09/10/20 05/02/25 History quetiapine 100 mg tablet 100 mg PO DAILY 09/10/20 05/02/25 History sertraline 100 mg tablet 100 mg PO DAILY 09/10/20 05/02/25 History Patient hx anesthesia problems: none Family hx anesthesia problems: none Results Review: All pre-operative results and documents have been reviewed as part of the pre-operative evaluation. [facility] Past Medical History Medical History Hypothyroidism (acquired) Bipolar disorder, unspecified Seizure disorder since 2011 (?) alcohol related Asthma Anemia Surgical History Surgical History History of delivery 1998 H/O ventral hernia repair multiple times History of cholecystectomy 1989 H/O gastric bypass 2002 Family History Family History Mother Heart disease Chronic obstructive pulmonary disease, unspecified Diabetes mellitus Father , before 40 years Acute myocardial infarction Other Asthma Social History Social History Smoking status: Never smoker Alcohol intake: former Alcohol use details: drank a lot for a while Substance use: never Substance use type: does not use Last use: high school Living arrangements: alone Additional living arrangements comments: condo unit with 21 year old son Occupation/Education: unemployed Gender identity (if verbalized by the patient): Female Sexual Orientation (if Verbalized by the Patient): Straight or Heterosexual Spiritual care concerns: No Agree to blood products: Yes Anes - Eval Final PreProcedure Day of Procedure 05/02/25 14:01 Patient weight: obese Heart: regular rate and rhythm Lungs: normal air movement Airway: Mallampati scale class 1 Neurological: alert and oriented Last oral intake: >/= 8 hours ASA classification: III Emergent: no Anesthetic plan: proceed Anesthesia type and monitoring: general GIVS and standard monitoring Results Review: All pre-operative results and documents have been reviewed as part of the pre-operative evaluation. Informed Consent: The patient's anesthetic plan and its attendant risks and benefits were discussed with the patient/family/POA. Questions were solicited and answers provided to the satisfaction of the patient/family/POA.
--- NOTE | 2025-05-02 14:02 | PM.IMHP ---
H&P: HPI History of Present Illness Date/Time: 05/02/25 14:02 Chief Complaint: Iron deficiency anemia Narrative: the patient was seen last year in our office for a deficiency anemia. She has a history of gastric bypass and cholecystectomy in the past. She was recently admitted in another hospital for an episode of apparent small-bowel obstruction which resolved with nasogastric suction and conservative treatment. In July last year I performed a colonoscopy but the prep was poor, so he was recommended to return in 1 year. She is here today for colonoscopy after a 2 day prep. Review of Systems Review of Systems: All systems reviewed & are unremarkable except as noted in HPI and below PMFSH Past Medical History Medical History Hypothyroidism (acquired) Bipolar disorder, unspecified Seizure disorder since 2011 (?) alcohol related Asthma Anemia Surgical History Surgical History History of delivery 1998 H/O ventral hernia repair multiple times History of cholecystectomy 1989 H/O gastric bypass 2002 Family History Family History Mother Heart disease Chronic obstructive pulmonary disease, unspecified Diabetes mellitus Father , before 40 years Acute myocardial infarction Other Asthma Social History Social History Smoking status: Never smoker Alcohol intake: former Alcohol use details: drank a lot for a while Substance use: never Substance use type: does not use Last use: high school Living arrangements: alone Additional living arrangements comments: condo unit with 21 year old son Occupation/Education: unemployed Gender identity (if verbalized by the patient): Female Sexual Orientation (if Verbalized by the Patient): Straight or Heterosexual Spiritual care concerns: No Agree to blood products: Yes Meds Home Medications and Allergies Home Medications ?Medication ?Instructions ?Recorded ?Confirmed ?Type folic acid 1 mg tablet 1 mg PO DAILY 09/10/20 05/02/25 History levetiracetam 750 mg tablet 750 mg PO BID 09/10/20 05/02/25 History levothyroxine 75 mcg tablet 75 mcg PO DAILY 09/10/20 05/02/25 History quetiapine 100 mg tablet 100 mg PO DAILY 09/10/20 05/02/25 History sertraline 100 mg tablet 100 mg PO DAILY 09/10/20 05/02/25 History Allergies Allergy/AdvReac Type Severity Reaction Status Date / Time No Known Allergies Allergy Verified 05/02/25 13:21 Vital Signs Vital Signs - 24 hr 05/02/25 13:21 Temperature 98.1 F Pulse Rate 68 Respiratory Rate 16 Blood Pressure 106/71 Pulse Oximetry 100 Oxygen Delivery Room Air Exam Const: General: cooperative and healthy appearing Resp: Effort & Inspection: normal respiratory effort and able to speak in complete sentences Auscultation: clear to auscultation bilaterally Cardio: Rate: regular rate Rhythm: regular rhythm GI: Inspection: normal to inspection GI Palp: No No hepatosplenomegaly present Auscultation: normal bowel sounds Rectal Exam: deferred Skin: General skin exam: normal color Psych: Appearance: grossly normal Mental Status: mental status grossly normal Assessment and Plan Assessment and plan (1) Iron deficiency anemia, unspecified: Qualifiers: Iron deficiency anemia type: other iron deficiency Qualified Code(s): D50.8 - Other iron deficiency anemias Code(s): D50.9 - Iron deficiency anemia, unspecified Status: Chronic Assessment and Plan: The patient is deemed a good candidate for the procedure. Consent signed. Will proceed. Plan The patient is deemed a good candidate for the procedure. Consent signed. Will proceed.
[2025-05-02 14:26] VITALS: BP 101/65; PULSE 69; RESP 17; O2SAT 100
[2025-05-02 14:36] VITALS: BP 111/69; PULSE 66; RESP 14; O2SAT 100
[2025-05-02 14:46] VITALS: BP 111/75; PULSE 65; RESP 20; O2SAT 100
== END 2025-05-02 15:00 | disposition home or self-care (01) ==
PROVIDERS: PCP Registered Nurse; Visit Provider Internal Medicine Gastroenterology
PROC: 0DJD8ZZ Inspection of Lower Intestinal Tract, Via Natural or Artificial Opening Endoscopic (ICD-10-PCS; CPT 45378; principal; 2025-05-02 13:30)
DX: D50.9 Iron deficiency anemia, unspecified (principal); Z98.84 Bariatric surgery status; Z90.49 Acquired absence of other specified parts of digestive tract
CPT/HCPCS: 45378; J2003; J2704; J7120

== ENCOUNTER 2025-07-03 14:19 | Outpatient (CLI) | payer OTHER, SELFPAY ==
--- NOTE | ~2025-07-03 | MM_ITS ---
EXAMINATION: MM screening lawanda BI w coy HISTORY: Screening. TECHNIQUE: Craniocaudal and mediolateral oblique 3-D tomosynthesis images were obtained and synthetic 2-D images were generated. CAD analysis was submitted and interpreted. COMPARISON: 2021 BREAST PARENCHYMAL COMPOSITION: Not Dense: The breasts are almost entirely fatty FINDINGS: No suspicious masses are seen. There are no suspicious calcifications. No unexplained architectural distortion is seen. There are no skin or nipple abnormalities identified. There is no adenopathy seen on the images submitted. IMPRESSION: No mammographic evidence to suggest malignancy is seen. The patient may return to screening mammography as per ACR guidelines. BI-RADS 1 - Negative. Reviewed, dictated and finalized at location B. [facility] [employer]
--- OUTSIDE RECORDS SUMMARY | 2025-07-03 15:38 | XMS_ITS | Clinical Summary ---
Author Organization [facility] Address [address] [place] [address] Phone Care Team Providers Care Textile Engineer Name Role Phone Dmitri Fernández MD Unavailable [phone] Sidney Bynum MD Primary Care Provider [phone] Allergies No known active allergies Medications levETIRAcetam [...] 300 mg by mouth nightly. 4 Active Cyanocobalamin 1000 MCG SL Tablet 1 Tablet by Sublingual route daily for 360 days. 90 Tablet 3 5 02/03/20 26 Active cyanocobalamin (VITAMIN B-12) 1000 MCG/ML Solution INJECT 1000MCG( 1ML) ONCE A WEEK FOR 4 DOSES 4 mL 5 Active Additional Information Patient not taking.Reported on 05/23/2025 meclizine (ANTIVERT) 12.5 MG Tablet TAKE 1 TABLET BY MOUTH EVERY 6-8 HOURS NEEDED FOR DIZZINESS 5 Active Active Problems Problem Noted Date Diagnosed Date Elevated blood pressure reading 08/09/2024 HTN (hypertension) 08/09/2024 Vitamin B12 nutritional deficiency 01/08/2016 Elevated liver enzymes 01/08/2016 Iron deficiency anemia refractory to iron therap y 11/20/2015 Encounters Date Type Department Care Team Description 05/23/2025 12:15 PM CDT Lab [facility] [address] [place] [phone] Nurse, Cc [place] Iron deficiency anemia 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; Vitamin B12 nutritional deficiency; Vitamin B1 deficiency 05/23/2025 11:15 AM CDT Office Visit [facility] [address] [address] [place] [phone] Sandra Amanda, STOCK FITTER, PLATING FOREMAN Iron deficiency anemia 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 (Primary Dx); Vitamin B12 nutritional deficiency; Vitamin B1 deficiency 05/23/2025 Travel 04/29/2025 Refill [facility] [address] [place] [address] Dmitri Fernández MD Medication Refill from Last 3 Months Family History Medical [...] Sign Reading Time Taken Comments Blood Pressure 140/84 05/23/2025 11:42 AM CDT Pulse 79 05/23/2025 11:42 AM CDT Temperature 36.7 C (98 F) 05/23/2025 11:42 AM CDT Respiratory Rate 20 05/23/2025 11:4 2 AM CDT Oxygen Saturation 98% 05/23/2025 11: 42 AM CDT Inhaled Oxygen Concentration - - Weight 82.5 kg (181 lb 12.8 oz) 025 11:42 AM CDT Height 160 cm (5' 3) 05/23/2025 11:42 AM CDT Body Mass Index 32.2 05/23/2025 11:42 AM CDT Plan of Treatment Upcoming Encounters Date Type Department Care Team (Late st Contact Info) Description 08/22/2025 11:30 AM DOCUMENT PREPARATION SPECIALIST Office Visit [facility] [address] [address] Dmitri Fernández MD [address] [place] [phone] Health Maintenance Due Date Last Done [...] Influenza Immunization (#1) 2025 05/15/2015 SARS-COV-2 Immunization (1 - 2025- season) 2025 Respiratory Syncytial Virus (RSV) Immunization (Adult) (1 [...] Comments CBC WITH AUTO DIFF [place] Routine 05/23/2025 12:12 PM CDT COMP. METABOLIC PANEL [id number] [place] Routine 05/23/2025 12:12 PM CDT VITAMIN B12 [id number] [place] Routine 05/23/2025 12:12 PM CDT FOLATE [id number] [place] Routine 05/23/2025 12:1 2 PM CDT FERRITIN [id number] [place] Routine 05/23/2025 12 :12 PM CDT IRON AND TIBC [id number] [place] Routine 05/23/2025 12:12 PM CDT RETICULOCYTE COUNT (RETIC) Routine 05/23/2025 12:12 PM CDT Iron deficiency anemia 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 Vitamin B12 nutritional deficiency Vitamin B1 deficiency from Last 3 Months Results * VITAMIN B12 [id number] [place] (05/23/2025 12:12 PM CDT) VITAMIN B12 288 232 - 1,245 PG/ML [facility] 05/23/2025 12:1 2 PM CDT Narrative [facility] - 05/24/2025 8:35 AM CDT TESTING PERFORMED AT: [] [facility], [address] [place] [address], [place], [address], PHONE: [phone], PUBLISHING SPECIALIST: EMERSON BRYSON, PHD Sandra Amanda APRN, PLATING FOREMAN LAB SEND OUTS Final Result [facility] [address] [place] [address], [place] [phone] * IRON AND TIBC [id number] [place] (05/23/2025 12:12 PM CDT) Iron Bind.Cap.(TIBC) 265 250 - 450 UG/DL [facility] UIBC 197 131 - 425 UG/DL [facility] Iron, Serum 68 27 - 159 UG/DL [facility] Iron Saturation 26 15 - 55 % [facility] 05/23/2025 12:1 2 PM CDT [facility] - 05/24/2025 9:08 AM CDT TESTING PERFORMED AT: [CB] [facility] [place], [address] [place] [address], [address], PHONE: [phone], PUBLISHING SPECIALIST: EMERSON BRYSON, PHD Sandra Amanda APRN, PLATING FOREMAN LAB SEND OUTS Final Result Performing Organization Address [facility] Co de Phone Number [facility] [address] [place] [address], [place] [phone] * FOLATE [id number] [place] (05/23/2025 12:12 PM CDT) Folate (Folic Acid), Serum 19.5 >3.0 NG/ML [facility] Comment: A SERUM FOLATE CONCENTRATION OF LESS THAN 3.1 NG/ML IS CONSIDERED TO REPRESENT CLINICAL DEFICIENCY. 05/23/2025 12:1 2 PM CDT [facility] - 05/24/2025 9:08 AM CDT TESTING PERFORMED AT: [CB] [facility] [address], [address], PHONE: [phone], PUBLISHING SPECIALIST: EMERSON BRYSON, PHD Sandra Amanda APRN, PLATING FOREMAN LAB SEND OUTS Final Result Performing Organization Address [facility]/ZIP Co de Phone Number [facility] [place] [address], [place] [phone] * (ABNORMAL) FERRITIN [id number] [place] (05/23/2025 12:12 PM CDT) Ferritin, Serum 245(H) 15 - 150 NG/ML [facility] 05/23/2025 12:1 2 PM CDT Narrative [facility] - 05/24/2025 9:08 AM CDT TESTING PERFORMED AT: [] [facility] [address], [address], PHONE: [phone], PUBLISHING SPECIALIST: EMERSON BRYSON, PHD Sandra Amanda APRN, PLATING FOREMAN LAB SEND OUTS Final Result Performing Organization Address [facility] Co de Phone Number [facility] [place] [address], [place] [phone] * (ABNORMAL) COMP. METABOLIC PANEL [id number] [place] (05/23/2025 12:12 PM CDT) GLUCOSE, SERUM 91 70 - 99 MG/DL [facility] BUN 9 6 - 24 MG/DL [facility] CREATININE, SERUM 0.63 0.57 - 1.00 MG/DL [facility] EGFR 105 >59 ML/MIN/1.7 3 [facility] BUN/CREATININE RATIO 14 9 - 23 [facility] SODIUM, SERUM 145(H) 134 - 144 MMOL/L [facility] POTASSIUM, SERUM 3.6 3.5 - 5.2 MMOL/L [facility] CHLORIDE, SERUM 108(H) 96 - 106 MMOL/L [facility] CARBON DIOXIDE, TOTAL 20 20 - 29 MMOL/L [facility] CALCIUM, SERUM 8.8 8.7 - 10.2 MG/DL [facility] PROTEIN, TOTAL, SERUM 6.3 6.0 - 8.5 G/DL [facility] ALBUMIN, SERUM 3.9 3.8 - 4.9 G/DL [facility] GLOBULIN, TOTAL 2.4 1.5 - 4.5 G/DL [facility] BILIRUBIN, TOTAL 0.5 0.0 - 1.2 MG/DL [facility] ALKALINE PHOSPHATASE, S 186(H) 49 - 135 IU/L [facility] AST (SGOT) 35 0 - 40 IU/L [facility] ALT (SGPT) 34(H) 0 - 32 IU/L [facility] 05/23/2025 12:1 2 PM CDT Narrative [facility] - 05/24/2025 9:08 AM CDT TESTING PERFORMED AT: [] [facility] [place], [address] [place] [address], [address], PHONE: [phone], PUBLISHING SPECIALIST: EMERSON BRYSON, PHD Sandra Amanda APRN, PLATING FOREMAN LAB SEND OUTS Final Result Performing Organization Address City/State/[facility] Co de Phone Number [facility] [place] [address], * (ABNORMAL) CBC WITH AUTO DIFF [place] (05/23/2025 12:12 PM CDT) WBC 4.4 4.0 - 10.0 10*3/uL [facility] HGB 13.2 11.2 - 15.7 g/dL [facility] HCT 40.1 34.1 - 44.9 % [facility] PLT 251 163 - 369 10*3/uL [facility] MPV 11.0 9.4 - 12.4 fL [facility] RBC 4.07 3.93 - 5.22 10*6/uL [facility] MCV 99(H) 79 - 95 fL [facility] MCH 32.4(H) 25.6 - 32.2 pg [facility] MCHC 32.9 32.2 - 36.5 g/dL [facility] RDW 12.1 11.6 - 14.4 % [facility] Neutrophils % 57.3 36.0 - 66.0 % [facility] Lymphocytes % 28.2 19.0 - 40.0 % [facility] Monocytes % 6.8 4.1 - 12.1 % [facility] Eosinophils % 6.1(H) 0.0 - 3.5 % [facility] Basophils % 0.7 0.0 - 1.0 % [facility] Absolute Neutrophils 2.6 1.4 - 6.6 10*3/uL [facility] Absolute Lymphocytes 1.3 0.8 - 4.0 10*3/uL [facility] Absolute Monocytes 0.3 0.2 - 1.2 10*3/uL [facility] Absolute Eosinophils 0.3 0.0 - 0.4 10*3/uL [facility] Absolute Basophils 0.0 0.0 - 0.1 10*3/uL [facility] 05/23/2025 12:1 2 PM CDT Sandra Amanda APRN, PLATING FOREMAN LAB SEND OUTS Final Result [facility] [place] [address] [address], * RETICULOCYTE COUNT (RETIC) (05/23/2025 12:12 PM CDT) Reticulocyte count 1.65 0.50 - 1.70 % [facility] RET-He 35.90 28.20 - 36.60 pg [facility] Comment: RET-He is a direct assessment of incorporation of iron into erythrocyte hemoglobin. It provides an indirect measure of the iron available for new erythropoiesis over past 2-4 days. Blood 05/23/2025 12:1 2 PM CDT Sandra Amanda STOCK FITTER, PLATING FOREMAN HEMATOLOGY ORDERABLES Final Result [facility] [address] [place] [address], from Last 3 Months Insurance MEDICAID [facility] PL[facility] Care Teams Textile Engineer Relationship Specialty Start Date End Date Sidney Bynum MD [address] [place] [address] PCP - General Family Medicine 04/30/24 Dmitri Fernández MD [address] [place] [id number] Consulting Physician Oncology 11/03/23
--- OUTSIDE RECORDS SUMMARY | 2025-07-03 15:38 | XMS_ITS | Patient Health Record ---
Author Organization [facility] [employer] [facility] Address [address] [facility] [address] [place] [address] Care Team Providers Care Installer Technician Name Role Phone Tara Olivares Unavailable [phone] Reason For Referral No Information Medications Medication [...] Aerosol Powder Breath Activated Inhalation *Reorder from Qoopl for eRx and Interaction Alerts* 10/16/2018 Active Folic Acid 1 MG Tablet Oral 10/16/2018 Active predniSONE 20 MG Tablet Oral 10/16/2018 Active Cyanocobalamin 1000 MCG/ML Solution Injection 10/16/2018 Active Mirtazapine 30 MG Tablet Oral 10/16/2018 Active Cholecalciferol 1.25 MG (17474 UT) Capsule Oral 10/16/2018 Active ProAir HFA [...] Insured Coverage Start Date Coverage End Date [facility] - Dos Prior To [address] [employer] [address] [place] [phone] [id number] DIANNE JIANG Self - patient is the insured
--- OUTSIDE RECORDS SUMMARY | 2025-07-03 15:38 | XMS_ITS | Encounter Summary ---
Author Organization [facility] Address [facility] access hospital[address] [place] [address] Care Team Providers Care Tile Layer Name Role Phone Hira Miller MD Primary Care Provider U Sidney Anderson MD Primary Care Provider [phone] Encounter Details Date Type Department Care Team (Late st Contact Info) Description 01/15/2019 UPPERS EDGE BURNISHER ONLY [facility] Medical Group Priority Care - [address] [place] [address] Scanned, Documents Social History Tobacco Use Types Packs/Day Years Used Date Smoking Tobacco: Never Smokeless Tobacco: Never Alcohol Use Standard Drinks/Week Comments No 0 (1 standard drink = 0.6 oz pur e alcohol) AUDIT-C Answer Date Recorded Frequency of Alcohol Consumption Never 08/09/2018 Average Number of Drinks Not on file 019 Frequency of Binge Drinking Not on file 04/2019 Education Answer Date Recorded What is the highest level of school you have completed or the highest degree you have received? High school graduate 08/09/2018 Comments No Sex and Gender Information Value Date Recorded Sex Assigned at Female 02/15/2025 3:43 PM CDT Legal Sex Female 6:09 PM CDT Gender Identity Female 02/15/2025 3:43 PM CDT Sexual Orientation Not on file documented as of this encounter Progress Notes * Zscanned, Documents - 01/15/2019 12:00 AM CDT DIANNE JIANG MD: ACCT: [id number] ADMIT/SERVICE DATE: 09/27/18 DISCHARGE DATE: 10/29/18 : 1970 PT TYPE: DIS RCR SEX: F [facility]D [facility]: [facility] CHART DOCUMENT REHABILITATION DISCHARGE SUMMARY THIS PATIENT WAS SEEN FOR ONE VISIT ON SEPTEMBER 27, 2018. REASON FOR DISCONTINUATION OF SERVICE: THE PATIENT DID NOT SHOW UP FOR SCHEDULED VISITS OR HAS NOT CANCELED ON 3 OCCASIONS IN ADDITION TO HER ONE VISIT ATTENDED. CURRENT PHYSICAL FUNCTIONAL STATUS: PLEASE REVIEW PLAN OF CARE DICTATED ON SEPTEMBER 27, 2018, FOR DETAILS REGARDING THIS PATIENT INCLUDING DEGREE OF GOAL ACHIEVEMENTS. THE PATIENT HAS NOT FOLLOWED THROUGH WITH PLAN OF CARE. DISCHARGE PLAN: WRITTEN AND VERBAL COMMUNICATION RELATED TO THIS PATIENT CONTINUING CARE REGARDING AN INTRODUCTORY HOME EXERCISE PROGRAM WAS PROVIDED. PATIENT IS DISCHARGED TO HOME PROGRAM. ELECTRONICALLY SIGNED BY ANTONIO NGUYEN P.T. 01/24/2019 01:01 P ROGER/SANDEEP JOB NO: [id number] DOC NO: [id number] 01/15/2019 01/17/2019 02:20 P CC: documented in this encounter Plan of Treatment Not on file documented as of this encounter Visit Diagnoses Not on filedocumented in this encounter Additional Health Concerns Infection Onset Date Last Indicated Resolved Time MRSA 03/11/2017 03/11/2017 COVID-19 Rule Out 03/04/2021 03/04/2021 03/04/2021 5:45 PM CDT COVID-19 Rule Out 07/15/2021 07/15/2021 07/15/2021 4:09 PM LOAF COUNTER COVID-19 Rule Out 10/12/2023 10/12/2023 10/12/2023 7:56 PM CDT documented as of this encounter Care Teams Tile Layer Relationship Specialty Start Date End Date Hira Miller MD PCP - General 10/17/15 09/02/20 Sidney Bynum MD [address] [place] [address] PCP - General FAMILY PRACTICE 03/03/21 documented as of this encounter
--- OUTSIDE RECORDS SUMMARY | 2025-07-03 15:38 | XMS_ITS | Clinical Summary ---
Author Organization [facility] Address [facility] [place] [address] Care Team Providers Care Emergency Vehicle Driver Name Role Phone Unavailable Primary Care Provider Unavailabl e Source Comments [facility],non-owned Affiliates and Associated Physician Practices is amultiple site organization consisting of ambulatory clinics and hospital sitesin [place], [place], [place] and [place]. This disclosure is being madepursuant to the Care Everywhere program and may not contain all information available regarding this patient. Last updated 18.[facility] Allergies No known active allergies Social History [...] of 3 - 19+ 3-dose series) 1989 Cervical Cancer Screening 1991 PAP SMEAR 1991 PAP with HPV 2000 PNEUMOCOCCAL VACCINE 50+ (1 of 1 - PCV) 2020 ZOSTER VACCINE (1 of 2) 2020 DEPRESSION SCREENING 08/01/2024 COVID-19 VACCINE (1 - 2024-2 6 season) 2025 INFLUENZA VACCINE (#1) 2025 05/15/2015 [...] patient's age to complete this topic Insurance [facility] SELF PAY NO INSURANCE Member Subscriber Plan / Payer (Ef fective for All Dates) Name:Gretchne Jiang Member ID:Not on file Relation to Subscriber:Not on file Name:GRETCHEN JIANG Subscriber ID:Not on file (Home) Address: [address] [place] [id number] Payer ID:Not on file Group ID:Not on file Type:Self Pay Address: [place], [place]
--- OUTSIDE RECORDS SUMMARY | 2025-07-03 15:39 | XMS_ITS | Clinical Summary ---
Author Organization [facility] Address [address] [place] [address] Care Team Providers Care Hvac Estimator Name Role Phone Sidney Bynum MD Primary Care Provider [phone] Allergies No known active allergies Medications levETIRAcetam 750 MG tabletIndications: Seizures (CMS/HCC HHS/HCC) TAKE 1 TABLET(750 MG) BY MOUTH TWICE DAILY 60 tablet 1 Active levothyroxine 75 MCG tabletIndications: Adult hypothyroidism Take 1 tablet (75 mcg total) by mouth daily for 30 days. 30 tablet 1 Active QUEtiapine (SEROQUEL) 300 MG tablet Take 1 tablet (300 mg total) by mouth nightly at bedtime. at bedtime. 5 Active sertraline (ZOLOFT) 100 MG tablet Take 1 tablet (100 mg total) by mouth daily. 5 Active Cyanocobalamin [address] 1,000 mcg under the tongue daily. 5 02/03/20 26 Active HYDROcodone-acetam inophen (NORCO) 5-325 MG tabletIndications: Acute Pain < 3 Day Supply Take 1 tablet by mouth every 6 (six) hours as needed for Pain. Indications : Acute Pain < 3 Day Supply 12 tablet 5 Active vitamin D2, ergocalciferol, 74988 UNITS capsule TK 1 C PO 1 TIME A WK FOR 4 WKS 4 8 08/09/19 19 Discontin ued(Error ) Active Problems Problem Noted Date Diagnosed Date Small bowel obstruction 02/15/2025 SBO (small bowel obstruction) 02/15/2025 Acute on chronic anemia 03/04/2021 Right foot pain 07/09/2019 Bipolar disorder, current episode mixed, mild Adult hypothyroidism 02/09/2018 Iron deficiency anemia refractory to iron therap y 10/29/2015 Atherosclerosis of coronary artery 10/22/2015 Hypokalemia 10/22/2015 Seizures 10/22/2015 Vitamin B12 nutritional deficiency 10/22/2015 PVD (peripheral vascular disease) 05/15/2015 Migraine headache 09/19/2014 Anemia 06/22/2014 Depression with anxiety 03/27/2014 Insomnia 03/27/2014 Resolved Problems Problem Noted Date Diagnosed Date Resolved Date Chronic right shoulder pain 09/05/2018 04/06/2019 Internal derangement of right shoulder 09/05/2018 04/06/2019 Acute pain of right shoulder 08/09/2018 04/06/2019 Immunizations Immunization Administration Dates Next Due Fluzone Adult - >Age 3 (Pref illed Syringe) 07/09/2019(Deferred: Patient Refused) Influenza (Generic) 05/15/2015 Influenza Adult (Generic) 05/15/2015 Pneumococcal (Pneumovax 23) 02/12/2014 Family History Medical History Relation Comments [place] Father COPD Mother Diabetes Mother Relation Status Comments Father Mother Social History Tobacco Use Types Packs/Day Years Used Date Smoking Tobacco: Never Smokeless Tobacco: Never Tobacco Cessation:Counseling Given: Not Answered Alcohol Use Standard Drinks/Week Comments No 0 (1 standard drink = 0.6 oz pur e alcohol) quit drinking in 2011 [facility] PureSafe water systemsities Answer Date Recorded In the past 12 months has e Familybuilder, gas, oil, or water Cellworks threatened to shut off services in your home? No 02/15/2025 Humiliation, Afraid, Rape, and Kick questionnair e Answer Date Recorded Within the last year, have y ou been afraid of your partner or ex-partner? No 02/15/2025 Within the last year, have y ou been humiliated or emotionally abused in other ways by your partner or ex-partner? No Within the last year, have y ou been kicked, hit, slapped, or otherwise physically hurt by your partner or ex-partner? No 02/15/2025 Within the last year, have y ou been raped or forced to have any kind of sexual activity by your partner or ex-partner? No 02/15/2025 AUDIT-C Answer Date Recorded Frequency of Alcohol Consumption Never 08/09/2018 Average Number of Drinks Not on file 019 Frequency of Binge Drinking Not on file 04/2019 Overall Financial Resource Strain (CARDIA) Answe r Date Recorded How hard is it for you to pa y for the very basics like food, housing, medical care, and heating? Not hard at all 02/15/2025 PHQ-2 Answer Date Recorded PHQ-2 Score 2 07/01/2019 Hunger Vital Sign Answer Date Recorded Within the past 12 months, y ou worried that your food would run out before you got the money to buy more. Never true 02/16/20 25 Within the past 12 months, t he food you bought just didn't last and you didn't have money to get more. Never true 02/15/2025 PRAPARE - Transportation Answer Date Re corded In the past 12 months, has l ack of transportation kept you from medical appointments or from getting medications? No 01/29 In the past 12 months, has l ack of transportation kept you from meetings, work, or from getting things needed for daily living? No 02/15/2025 Housing Stability Vital Sign Answer Shemar e Recorded In the last 12 months, was t here a time when you were not able to pay the mortgage or rent on time? No 02/15/2025 In the past 12 months, how m any times have you moved where you were living? 0 02/15/2025 At any time in the past 12 m onths, were you homeless or living in a long-term (including now)? No 02/15/2025 Education Answer Date Recorded What is the highest level of school you have completed or the highest degree you have received? High school graduate 08/09/2018 Comments No Sex and Gender Information Value Date Recorded Sex Assigned at Female 02/15/2025 3:43 PM CDT Legal Sex Female 6:09 PM CDT Gender Identity Female 02/15/2025 3:43 PM CDT Sexual Orientation Not on file Last Filed Vital Signs Vital Sign Reading Time Taken Comments Blood Pressure 121/74 02/19/2025 7:26 AM CDT Pulse 61 02/19/2025 7:26 AM CDT Temperature 36.8 C (98.2 F) 02/19/2025 7:26 AM CDT Respiratory Rate 16 02/19/2025 7:26 AM CDT Oxygen Saturation 95% 02/19/2025 7:26 AM CDT Inhaled Oxygen Concentration - - Weight 87.1 kg (192 lb) 02/15/2025 7:35 AM CDT Height 160 cm (5' 2.99) 02/15/2025 11:04 PM CDT Body Mass Index 34.01 02/15/2025 7:35 AM CDT Plan of Treatment Health Maintenance Due Date Last Done Comments ASCVD Statin 1970 Cervical Cancer Screening Pap Smear (Age 30 to 64) Every 3 Years 1970 Colorectal Cancer Screening Colonoscopy (10 Years) 1970 Annual Physical 1973 Hepatitis C 1988 DTaP, Tdap and Td Vaccines (1 - Tdap) 1989 Hepatitis B Vaccines (1 of 3 - 19+ 3-dose series) 1989 Cervical Cancer Screening Pap with HPV Testing (Age 30 to 64) Every 5 Years 2000 Cervical Cancer Screening with HPV 2000 Mammogram Screening 2010 Pneumococcal Vaccine: 50+ Years (2 of 2 - PCV) 02/12/2015 02/12/2014 ASCVD LDL 11/03/2019 11/02/2018, 09/29, 10/10/2017, Additional history exists Zoster Vaccines (1 of 2) 2020 PHQ-2 (Physician [place]) 08/01/2024 COVID-19 Vaccine ( - season) 2025 Influenza Adult (#1) 2025 05/15/2015, 05/15/20 15 Colorectal Cancer Screening FIT/FOBT (1 Year) Discontinued 03/04/2021 Hepatitis A Vaccines Aged Out No long er eligible based on patient's age to complete this topic Meningococcal B Vaccine Aged Out No l onger eligible based on patient's age to complete this topic Meningococcal Vaccine Aged Out No mere rubi eligible based on patient's age to complete this topic RSV Immunizations Under 20 Months Aged Out No longer eligible based on patient's age to complete this topic Goals Goal Patient Goal Type Associated Problems Recent Progress Patient-Stated? Author Consistently take medications as Prescribed General No Radha Booker, RN Patient will return to prior living situation and remain independent in ADLs upon discharge from [facility] Radha Edwards RN Procedures Procedure Name Priority Date/Time Associated Diagnosis Comments OCCULT BLOOD, FECES STAT 03/04/2021 1 :36 AM CDT LIPID PANEL Routine 11/02/2018 3:57 PM CDT COLONOSCOPY Routine DIRECTOR OF ASSESSING from Last 3 Months or Most Recently Relevant to Health Maintenance Results * OCCULT BLOOD, FECES (03/04/2021 1:36 AM CDT) Pathologist [facility] OCCULT BLOOD FECAL NEGATIVE NEGATIVE 03/04/2021 1:53 AM CDT [facility] STOOL SPECIMEN / Unknown 03/04/2021 1:36 AM CDT Robert Torrez MD BODY FLUIDS AND STOOLS CANDICE PEREIRA Final Result [facility] [address] [place] [address], * LIPID PANEL (11/02/2018 3:57 PM CDT) CHOLESTEROL 147 <200.0 MG/DL 11/02/2018 4:44 PM CDT [facility] TRIGLYCERIDES 71 <150 MG/DL 11/02/2018 4:44 PM CDT [facility] HDL 48 >40.0 MG/DL 11/02/2018 4:44 PM CDT [facility] LDL (CALCULATED) 85 <100 MG/DL 11/03/19 19 4:44 PM CDT [facility] NON HDL CHOLESTEROL 99 <130 MG/DL 11/02 4:44 PM CDT [facility] CHOL/HDL RATIO 3.1 0.0 - 4.5 11/02/2018 4:44 PM CDT [facility] VLDL CALCULATION 14 5 - 55 MG/DL 11/02/2018 4:44 PM CDT [facility] LIPID INTERPRETATION 11/02/2018 4:44 PM CDT [facility] Comment: NIH CONCENSUS REPORT RECOMMENDATIONS: ADULT CHILD LOW RISK: CHOLESTEROL <200 <170 TRIGLYCERIDE <150 --- HDL >=60 --- LDL <100 <110 BORDERLINE: CHOLESTEROL 200-239 170-199 TRIGLYCERIDE 150-199 --- HDL 40-59 --- LDL 100-159 110-129 HIGH RISK: CHOLESTEROL >=240 >=200 TRIGLYCERIDE >=200 --- HDL <40 --- LDL >=160 >=130 11/02/2018 3:57 PM CDT 11/02/2018 3:58 PM CDT us Generic Conversion Md [facility] Final R esult [facility] [address] [address] [place] [place] [id number], [place] [phone] * Colonoscopy ( DIRECTOR OF ASSESSING) Narrative [facility] TO EPIC CONVERSION - DIRECTOR OF ASSESSING Documented hx of procedure Procedure Note [place] Peter MD - 06/04/2018 Documented hx of procedure us Generic Conversion Md [facility] PROCEDURE ORDERABLES Final Result Performing Organization Address City/[facility] Co de Phone Number [facility] TO EPIC CONVERSION from Last 3 Months or Most Recently Relevant to Health Maintenance Additional Health Concerns Infection Onset Date Last Indicated MRSA 03/11/2017 03/11/2017 Insurance Advance Directives Documents on File Type Date Recorded Patient Spring Winder Expl anation Advance Directives and Livin g Will 10/17/2015 POWER OF ASPNET DEVELOPER * Full Code (Latest Code Status on File) Date Activated Date Inactivated Comments 02/15/2025 4:16 PM 02/19/2025 2:02 PM * Full Code Date Activated Date Inactivated Comments 03/04/2021 2:10 PM 03/06/2021 5:52 PM Care Teams Hvac Estimator Relationship Specialty Start Date End Date Sidney Bynum MD [address] [place] [address] PCP - General FAMILY PRACTICE 03/03/21
== END 2025-07-03 14:20 | disposition home or self-care (01) ==
LOC: ANHFOHIMG 14:21
PROVIDERS: PCP Registered Nurse; Visit Provider Registered Nurse
DX: Z12.31 Encounter for screening mammogram for malignant neoplasm of breast (principal)
CPT/HCPCS: 77063; 77067

== ENCOUNTER 2025-07-03 14:54 | Outpatient (CLI) | payer OTHER, SELFPAY ==
[2025-07-03 15:19] LABS: Hematocrit 37.5 % (37.0-47.0); Hemoglobin 12.7 g/dL (12.0-15.0); Mean Corpuscular HGB Conc 33.9 g/dl (32-36); Mean Corpuscular Hemoglobin 32.6 pg (26-34); Mean Corpuscular Volume 96.2 fl (80-100); Platelet Count Result 239 k/mm3 (150-375); Red Blood Count 3.90 M/mm3 (4.2-5.4); White Blood Count 7.1 K/mm3 (4.5-10.0)
[2025-07-03 15:32] LABS: Alanine Aminotransferase 47 U/L (6-35); Albumin Level 4.2 g/dL (3.5-5.1); Alkaline Phosphatase 164 U/L (38-126); Anion Gap 3 mmol/L (4-12); Aspartate Amino Transferase 51 U/L (14-36); Bilirubin,Total 0.9 mg/dL (0.2-1.3); Blood Urea Nitrogen 10 mg/dL (7-17); Calcium 8.5 mg/dL (8.4-10.2); Carbon Dioxide 29 mmol/L (22-30); Chloride 106 mmol/L (98-107); Cholesterol 173 mg/dL (0-200); Estimated Glomerular Filt Rate > 60; Glucose 91 mg/dL (65-110); HDL Direct 69 mg/dL; Potassium 3.5 mmol/L (3.4-5.0); Sodium 138 mmol/L (137-145); Total Protein 7.2 g/dL (6.3-8.2); Triglycerides 46 mg/dL (<150)
[2025-07-03 16:08] LABS: Thyroid Stimulating Hormone 5.200 uIU/mL (0.465-4.680)
[2025-07-03 16:12] LABS: Hemoglobin A1C 4.8 % (<5.7)
--- OUTSIDE RECORDS SUMMARY | 2025-07-03 16:21 | XMS_ITS | Clinical Summary ---
Author Organization [facility] Address [facility] [place] [address] Care Team Providers Care Tool Marker Name Role Phone Unavailable Primary Care Provider Unavailabl e Source Comments [facility],non-owned Affiliates and Associated Physician Practices is amultiple site organization consisting of ambulatory clinics and hospital sitesin [place], [place], [place] and [place]. This disclosure is being madepursuant to the Care Everywhere program and may not contain all information available regarding this patient. Last updated 18.[facility] Allergies No known active allergies Social History [...] patient's age to complete this topic Insurance [facility] SELF PAY NO INSURANCE Member Subscriber Plan / Payer (Ef fective for All Dates) Name:Gretchen Jiang Member ID:Not on file Relation to Subscriber:Not on file Name:GRETCHEN JIANG Subscriber ID:Not on file (Home) Address: [address] [place] [id number] Payer ID:Not on file Group ID:Not on file Type:Self Pay Address: [place], [place]
--- OUTSIDE RECORDS SUMMARY | 2025-07-03 16:21 | XMS_ITS | Clinical Summary ---
Author Organization [facility] Address [address], [address] [place] [address] Phone Care Team Providers Care Bone Density Technician Name Role Phone Dmitri Fernández MD Unavailable [phone] Sidney Bynum MD Primary Care Provider [phone] Allergies No known active allergies Medications levETIRAcetam [...] 12:15 PM CDT Lab [facility] [address] [place] [address] [place] [phone] Nurse, Cc Frankewing Iron deficiency anemia 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; Vitamin B12 nutritional deficiency; Vitamin B1 deficiency 05/23/2025 11:15 AM CDT Office Visit [facility] [address] [place] [address] [place] [phone] Sandra Amanda, COMPUTING ARCHITECT, SENIOR SCIENCE CONSULTANT Iron deficiency anemia 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 (Primary Dx); Vitamin B12 nutritional deficiency; Vitamin B1 deficiency 05/23/2025 Travel 04/29/2025 Refill [facility] [address] [place] [address] Dmitri Fernández MD Medication Refill [...] st Contact Info) Description 08/22/2025 11:30 AM 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 METABOLIC PANEL [id number] [place] Routine 05/23/2025 12:12 PM CDT VITAMIN B12 [id number] [place] Routine 05/23/2025 12:12 PM CDT FOLATE [id number] [place] Routine 05/23/2025 12:1 2 PM CDT FERRITIN [id number] [place] Routine 05/23/2025 12 :12 PM CDT IRON AND TIBC [id number] [place] Routine 05/23/2025 12:12 PM CDT RETICULOCYTE COUNT (RETIC) Routine 05/23/2025 12:12 PM CDT Iron deficiency anemia 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 Vitamin B12 nutritional deficiency Vitamin B1 deficiency from Last 3 Months Results * VITAMIN B12 [id number] [place] (05/23/2025 12:12 PM CDT) VITAMIN B12 288 232 - 1,245 PG/ML [facility] 05/23/2025 12:1 2 PM CDT Narrative [facility] - 05/24/2025 8:35 AM CDT TESTING PERFORMED AT: [] [facility], [address] [place] [address], [place], [address], PHONE: [phone], PRESS TENDER: EMERSON BRYSON, PHD Sandra Amanda APRN, SENIOR SCIENCE CONSULTANT LAB SEND OUTS Final Result [facility] [address] [place] [address], [place] [phone] * IRON AND TIBC [id number] [place] (05/23/2025 12:12 PM CDT) Iron Bind.Cap.(TIBC) 265 250 - 450 UG/DL [facility] UIBC 197 131 - 425 UG/DL [facility] Iron, Serum 68 27 - 159 UG/DL [facility] Iron Saturation 26 15 - 55 % [facility] SPECIALIST [facility] 05/23/2025 12:1 2 PM CDT [facility] - 05/24/2025 9:08 AM CDT TESTING PERFORMED AT: [CB] [facility], [address] [place] [address], [address], PHONE: [phone], PRESS TENDER: EMERSON BRYSON, PHD Sandra Amanda APRN, SENIOR SCIENCE CONSULTANT LAB SEND OUTS Final Result Performing Organization Address [facility] Co de Phone Number [facility] [address] [place] [address], [place] [phone] * FOLATE [id number] [place] (05/23/2025 12:12 PM CDT) Folate (Folic Acid), Serum 19.5 >3.0 NG/ML [facility] SPECIALIST [facility] Comment: A SERUM FOLATE CONCENTRATION OF LESS THAN 3.1 NG/ML IS CONSIDERED TO REPRESENT CLINICAL DEFICIENCY. 05/23/2025 12:1 2 PM CDT [facility] - 05/24/2025 9:08 AM CDT TESTING PERFORMED AT: [CB] [facility] [address], [address], PHONE: [phone], PRESS TENDER: EMERSON BRYSON, PHD Sadnra Amanda APRN, SENIOR SCIENCE CONSULTANT LAB SEND OUTS Final Result Performing Organization Address [facility]/ZIP Co de Phone Number [facility] [place] [address], [place] [phone] * (ABNORMAL) FERRITIN [id number] [place] (05/23/2025 12:12 PM CDT) Ferritin, Serum 245(H) 15 - 150 NG/ML [facility] 05/23/2025 12:1 2 PM CDT Narrative [facility] - 05/24/2025 9:08 AM CDT TESTING PERFORMED AT: [] [facility] [address], [address], PHONE: [phone], PRESS TENDER: EMERSON BRYSON, PHD Sandra Amanda APRN, SENIOR SCIENCE CONSULTANT LAB SEND OUTS Final Result Performing Organization Address [facility] Co de Phone Number [facility] [place] [address], [place] [phone] * (ABNORMAL) COMP. METABOLIC PANEL [id number] [place] (05/23/2025 12:12 PM CDT) GLUCOSE, SERUM 91 70 - 99 MG/DL [facility] BUN 9 6 - 24 MG/DL [facility] CREATININE, SERUM 0.63 0.57 - 1.00 MG/DL [facility] EGFR 105 >59 ML/MIN/1.7 3 [facility] BUN/CREATININE RATIO 14 9 - 23 [facility] SODIUM, SERUM 145(H) 134 - 144 MMOL/L [facility] POTASSIUM, SERUM 3.6 3.5 - 5.2 MMOL/L [facility] CHLORIDE, SERUM 108(H) 96 - 106 MMOL/L [facility] CARBON DIOXIDE, TOTAL 20 20 - 29 MMOL/L [facility] CALCIUM, SERUM 8.8 8.7 - 10.2 MG/DL [facility] PROTEIN, TOTAL, SERUM 6.3 6.0 - 8.5 G/DL [facility] ALBUMIN, SERUM 3.9 3.8 - 4.9 G/DL [facility] GLOBULIN, TOTAL 2.4 1.5 - 4.5 G/DL [facility] BILIRUBIN, TOTAL 0.5 0.0 - 1.2 MG/DL [facility] ALKALINE PHOSPHATASE, S 186(H) 49 - 135 IU/L [facility] AST (SGOT) 35 0 - 40 IU/L [facility] ALT (SGPT) 34(H) 0 - 32 IU/L [facility] 05/23/2025 12:1 2 PM CDT Narrative [facility] - 05/24/2025 9:08 AM CDT TESTING PERFORMED AT: [] [facility], [address] [place] [address], [address], PHONE: [phone], PRESS TENDER: EMERSON BRYSON, PHD Sandra Amanda APRN, SENIOR SCIENCE CONSULTANT LAB SEND OUTS Final Result Performing Organization Address City/State/[facility] Co de Phone Number [facility] [place] [address], * (ABNORMAL) CBC WITH AUTO DIFF [place] (05/23/2025 12:12 PM CDT) WBC 4.4 4.0 - 10.0 10*3/uL [facility] HGB 13.2 11.2 - 15.7 g/dL [facility] HCT 40.1 34.1 - 44.9 % [facility] PLT 251 163 - 369 10*3/uL [facility] MPV 11.0 9.4 - 12.4 fL [facility] RBC 4.07 3.93 - 5.22 10*6/uL [facility] MCV 99(H) 79 - 95 fL [facility] MCH 32.4(H) 25.6 - 32.2 pg [facility] MCHC 32.9 32.2 - 36.5 g/dL [facility] RDW 12.1 11.6 - 14.4 % [facility] Neutrophils % 57.3 36.0 - 66.0 % [facility] Lymphocytes % 28.2 19.0 - 40.0 % [facility] Monocytes % 6.8 4.1 - 12.1 % [facility] Eosinophils % 6.1(H) 0.0 - 3.5 % [facility] Basophils % 0.7 0.0 - 1.0 % [facility] Absolute Neutrophils 2.6 1.4 - 6.6 10*3/uL [facility] Absolute Lymphocytes 1.3 0.8 - 4.0 10*3/uL [facility] Absolute Monocytes 0.3 0.2 - 1.2 10*3/uL [facility] Absolute Eosinophils 0.3 0.0 - 0.4 10*3/uL [facility] Absolute Basophils 0.0 0.0 - 0.1 10*3/uL [facility] 05/23/2025 12:1 2 PM CDT Sandra Amanda APRN, SENIOR SCIENCE CONSULTANT LAB SEND OUTS Final Result [facility] [place] [address], * RETICULOCYTE COUNT (RETIC) (05/23/2025 12:12 PM CDT) Reticulocyte count 1.65 0.50 - 1.70 % [facility] RET-He 35.90 28.20 - 36.60 pg [facility] Comment: RET-He is a direct assessment of incorporation of iron into erythrocyte hemoglobin. It provides an indirect measure of the iron available for new erythropoiesis over past 2-4 days. Blood 05/23/2025 12:1 2 PM CDT Sandra Amanda COMPUTING ARCHITECT, SENIOR SCIENCE CONSULTANT HEMATOLOGY ORDERABLES Final Result [facility] [address] [place] [address], from Last 3 Months Insurance MEDICAID [facility] Care Teams Bone Density Technician Relationship Specialty Start Date End Date Sidney Bynum MD [address] [place] [id number] PCP - General Family Medicine 04/30/24 Dmitri Fernández MD [address] [place] [id number] Consulting Physician Oncology 11/03/23
== END 2025-07-03 14:55 | disposition home or self-care (01) ==
LOC: ANHLAB 14:56
PROVIDERS: PCP Registered Nurse; Visit Provider Nurse Practitioner Family
DX: E03.9 Hypothyroidism, unspecified (principal); E55.9 Vitamin D deficiency, unspecified; Z98.84 Bariatric surgery status; Z13.1 Encounter for screening for diabetes mellitus; Z13.220 Encounter for screening for lipoid disorders
CPT/HCPCS: 36415; 80053; 80061; 82306; 83036; 84443; 85027